=== PATIENT | male | born 1965 | race Caucasian/White ===

== ENCOUNTER 2016-08-22 18:51 | Inpatient (IN) | payer OTHER ==
[~2016-08-22] VITALS: Ht 185.4 cm; Wt 93.6 kg
[~2016-08-22 18:51] MED LIST: BISOPROLOL-HCT1 EAC2 PO; CRUTCH1 EACH MISC; DRISDOL50000 UNIT PO; FENOFIBRATE160 MG PO; LANTUS SOL100 UNIT/1 SUB-Q; LISINOPRIL2.5 MG PO; NORCO 5-325 TA1 EACH PO; NORTRIPTYLINE H25 MG PO; SIMVASTATIN40 MG PO
[2016-08-22] MEDS ORDERED: ALPRAZOLAM0.25 MG PO (19:03)
--- NOTE | 2016-08-22 22:00 | NUR ---
51YR OLD MALE ADMITTED FROM ER VIA STRETCHER TO ROOM 123. PT IS ALERT, ORIENTED. ABLE TO SLIDE ONTO BED WITH MINIMAL ASSIST. LEFT LEG/FOOT ELEVATED AND ICE PACK TO ANKLE. GOOD CMS TO TOES. MONET WRAP/SPLINT CDI. SL TAPED SECURELY TO L AC. ORIENTED TO ROOM AND CALL LIGHT. ORDERS NOTED.
--- NOTE | 2016-08-22 22:45 | NUR ---
PT REQUESTED PAIN MEDICATION. STATES PAIN 5/10 NOW IN LEFT ANKLE. REPOSITIONED ON PILLOW FOR COMFORT, MORPHINE 4MG IV GIVEN. WATCHING TV. REMAINS NPO. IVF PATENT.
--- NOTE | 2016-08-22 23:45 | NUR ---
CALL WAS PLACED TO DR ARGUELLO TO DISCUSS ELEVATED BLOOD SUGAR AND PT HAD NOT TAKEN HIS SCHEDULED HS INSULIN. RECIEVED ORDER TO GIVE LANTUS 25 UNITS SQ NOW. HOSPITALIST TO CONSULT BEFORE AM SURGERY.
--- NOTE | 2016-08-23 00:45 | NUR ---
DR CHÁVEZ HERE TO CONSULT ON PT. NEW ORDERS NOTED. IVF CHANGED. BLOOD SUGAR CHECKED-161, COVERED WITH SC INSULIN ORDER.
--- NOTE | 2016-08-23 00:55 | NUR ---
PT SAT UP AT BEDSIDE AND VOIDED 300ML YELLOW URINE. REPOSITIONED IN BED FOR COMFORT AND ELEVATED LEFT LEG/ANKLE. ICE PACK TO ANKLE. CONT. TO HAVE GOOD CMS TO TOES. MORPHINE 4MG IV GIVEN FOR 5/10 PAIN. WILL TRY TO SLEEP NOW. REMAINS NPO.
--- NOTE | 2016-08-23 02:00 | NUR ---
EAR PLUGS PROVIDED PT IS C/O NOISE FROM ANOTHER ROOM. STATES HE IS COMFORTABLE NOW. KEEPING LEFT LEG ELEVATED.
--- NOTE | 2016-08-23 03:10 | NUR ---
STATES PAIN IS COMING BACK INTO LEFT ANKLE AND FOOT, REPOSITIONED, ICE TO AREA. MORPHINE 4MG IV GIVEN. DENIES NEED TO VOID, IVF PATENT. REMAINS NPO.
--- NOTE | 2016-08-23 06:11 | NUR ---
PT SAT UP AT BEDSIDE TO USE URINAL, WAS UNABLE TO RAISE L ARM OR GRASP WITH L HAND, LEFT LEG VERY WEAK. LEFT SIDE OF FACE WITH DROOP AND HAVING DIFFICULTY WITH SPEECH. SLURRING WORDS. DENIES HEADACHE OR PAIN. REPOSITIONED WITH L LEG ELEVATED. VITALS TAKEN. CALL PLACED TO DR CHÁVEZ. RECIEVED ORDER TO GET HEAD CT AND POSTPONE SCHEDULE SURGERY @ 0730.
--- NOTE | 2016-08-23 06:24 | NUR ---
PT TO CAT SCAN AT THIS TIME. MOST SX HAVE ALMOST COMPLETELY RESOLVED. SPEECH IS NOW CLEAR AND VERY MINIMAL FACIAL DROOP ON LEFT. EQUAL STENGTHS HANDS/LEGS NOW. IV TO SL AT THIS TIME.
--- NOTE | 2016-08-23 07:55 | NUR ---
PATIENT WAS AWAKE WHEN I CHECKED IN, HE REQUESTED WATER, AND WANTED TO KNOW IF HE WOULD BE GOING HOME.
--- NOTE | 2016-08-23 08:03 | NUR ---
RECIEVED BEDSIDE REPORT FROM ANNABEL MANCIA. PT SLEEPING, BREATHING EVEN AND UNLABORED. PT WOKE FOR MD ASSESSMENT. RN ROUNDED WITH MD. SCD, RAY DAVIS ON RIGHT LEG. CMS INTACT ON RIGHT SIDE. LEFT SIDE CMS INTACT, MD ORDERED NOT TO WIGGLE TOES. ICE TO LEFT CAST. BILAT RESTAURANT RECRUITER INTACT.
--- NOTE | 2016-08-23 08:57 | NUR ---
PATIENT WAS ABLE TO HAVE WATER, AND IS CURRENTLY TRYING TO REST. WILL CHECK Q2
--- NOTE | 2016-08-23 11:45 | NUR ---
PT AWAKE AND ALERT. PT REPORTS NO HEADACHE, NO NAUSEA, NO VOMITING. TREMORS NOTICIBLE WHEN REACHING FOR ITEMS. NO DIFFICULTY SWALLOWING. PT SLIGHTLY DIAPHORETIC.
--- NOTE | 2016-08-23 14:37 | EKG ---
[facility] [address] [facility] [place] [address] Signed Normal sinus rhythm Nonspecific ST abnormality Abnormal ECG No previous ECGs available Confirmed by NURA CHÁVEZ MD ([id number]) on 08/23/2016 2:36:52 PM Electronically Signed By: NURA CHÁVEZ MD 08/23/16 1437 PATIENT NAME: MARY ELLEN PERALTA Electrocardiogram DATE OF : 63 PHYSICIAN: NURA CHÁVEZ MD REPORT #: [id number] REPORT IS CONFIDENTIAL AND NOT TO BE RELEASED WITHOUT AUTHORIZATION
--- NOTE | 2016-08-23 15:06 | NUR ---
PT RESTING IN BED. HAS VOIDED. PT REPORTS MINIMAL PAIN AT THIS TIME, STATES MORPHINE WAS EFFECTIVE. NO C/O NAUSEA, VISION CHANGES, HEARING CHANGES, SWEATS, OR HEADACHE. PT HAD QUESTIONS RE: DISCHARGE AND HOME CARE. QUESTIONS ANSWERED. NO BM THIS SHIFT.
--- NOTE | 2016-08-23 18:25 | NUR ---
PT NON-WEIGHT BEARING ON LEFT LEG. PT REPORTS PAIN IN LEFT ANKLE, MORPHINE EFFECTIVE PAIN CONTROL. NO NEUROLOGICAL CHANGES THIS SHIFT. PT ALERT AND ORIENTATED X4. RADIATOR CORE TESTER EQUAL. CMS INTACT. TREMORS PRESENT IN ARMS.
--- NOTE | 2016-08-23 20:00 | NUR ---
RECEIVED REPORT AT 1900. PT WAS IN BED ALERT AND ORIENTED. PT DENIED PAIN AT THAT TIME.
--- NOTE | 2016-08-23 23:43 | NUR ---
PT IS SLEEPING AT THIS TIME. NEURO CHECK WAS WNL, NEURO VASCULAR CHECK WAS WNL WITH NEUROPATHY HIS BASELINE. PT IS ALERT AND ORIENTED, PT HAS SLIGHT TREMOR IN HANDS, CIWA WAS WNL BESIDES HIS TREMORS. V/S ARE WNL. PAIN IS WELL CONTROLLED WITH PRN PAIN MEDS AVAILABLE. NO NEW ISSUES NOTED AT THIS TIME.
--- NOTE | 2016-08-24 00:30 | NUR ---
NEURO-CHECK, NEURO-VASCULAR CHECK AND CIWA ARE ALL WNL AT THIS TIME. IN PT INTERVENTION SECTION I WAS UNABLE TO FIND AND UNABLE TO ADD THE NEURO-CHECK AN INTERVENTION. THEREFORE I WILL DOCUMENT THE NEURO-CHECK VIA NOTES.
--- NOTE | 2016-08-24 00:47 | NUR ---
PT IS AWAKE IN BED
--- NOTE | 2016-08-24 05:47 | NUR ---
PT OVERALL HAD UNEVENTFULL NIGHT, ALL NEURO-CHECKS, CIWA'S AND NEURO-VASCULAR CHECKS HAVE BEEN WNL., PT HAS BEEN NPO SINCE 0000. PAIN IS WELL CONTROLLED WITH IV MORPHINE. NO NEW ISSUES NOTED AT THIS TIME.
--- NOTE | 2016-08-24 05:47 | NUR ---
CIWA, NEURO-VASC CHECK AND NEURO CHECK ARE ALL WNL
--- NOTE | 2016-08-24 07:39 | NUR ---
RECIEVED BEDSIDE REPORT FROM ANNABEL DOMINIQUE. PT AWAKE AND ALERT. PT ANXIOUS ABOUT DISCHARGE AND SURGERY. ROUNDED WITH DR. ARGUELLO, WHO EXPLAINED SURGICAL PROCESS. PT VERBALIZED UNDERSTANDING.
--- NOTE | 2016-08-24 08:08 | NUR ---
SPOKE WITH DR. CHÁVEZ RE: CLEARANCE FOR SURGERY. DR CHÁVEZ WILL COME ASSESS PT.
--- NOTE | 2016-08-24 08:20 | NUR ---
INTO ASSESS PT THIS AM TO CLEAR FOR SURGERY. REPORTED TO THIS RN THAT PT IS OK TO GO TO SURGERY. HILTON JIN IN DAYSURGERY NOTIFIED PER REQUEST TO BE NOTIFIED OF 'S DECISION.
--- NOTE | 2016-08-24 08:36 | NUR ---
Patient got his hair shampooed and wiped down for surgery clean gown and shaved. patient is relaxing now.
--- NOTE | 2016-08-24 09:21 | NUR ---
PT OFF THE UNIT WITH RADHA Jones RN SURGERY TO SURGERY DEPT. AT THIS TIME
--- NOTE | 2016-08-24 10:53 | NUR ---
08/24/16 1053 Mara Childs 1045 PATIENT ARRIVES TO PACU UNRESPONSIVE TO VERBAL OR TACTILE STIMULI. ORAL AIRWAY IN PLACE. MASK AT 6 LITERS.
--- NOTE | 2016-08-24 11:03 | NUR ---
PT GONE FROM ROOM.
--- NOTE | 2016-08-24 11:41 | NUR ---
PT RETURNED TO FLOOR FROM PACU AT 1130. VITALS TAKEN. ASSESSMENT DONE.
--- NOTE | 2016-08-24 12:01 | NUR ---
PT SCORED 10 ON CIWA, NOTIFIED AND CIWA PROTOCOL ORDERED, 5MG I.V. VALIUM ADMINSTERED AT THIS TIME. WILL REASSESS IN 30 MIN.
--- NOTE | 2016-08-24 12:55 | NUR ---
PT IS SLEEPING, RESP EVEN AND UNLABORED, SLIGHT SNORES. PT ON TELE #8, HR 100. O2 SAT 97% ON ROOM AIR.
--- NOTE | 2016-08-24 13:17 | NUR ---
PT ATTEMPTING TO GET OUT OF BED "LOOKING FOR A RESTROOM". EASILY REORIENTATED TO PLACE AND LOCATION. PT STATES HE KNOWS WHAT TOOK PLACE THIS MORNING, REMEMBERS HIS SURGERY THIS MORNING. CIWA SCALE OF 9, 5MG ATIVAN GIVEN, PO. VOIDED 550. PT STATED HE WAS "LOOKING FOR ALTERNATE TRANSPORTATION FOR THIS ANKLE".
--- NOTE | 2016-08-24 13:22 | NUR ---
DR ARGUELLO NOTIFIED OF [facility] PROTOCOL STARTING. NO NEW ORDERS.
--- NOTE | 2016-08-24 15:59 | NUR ---
SPOKE WITH PATIENT IN ROOM. PT STATES HE LIVES ALONE. HAS BROKE A BONE IN SAME FOOT BEFORE, WORE A REMOVABLE BOOT. STAYED AT HOME. HAS SCOOTER AND CANE. PT STATES HE HAS NEUROPATHY AND CAN'T FEEL FEET, STUMBLES ALOT. PT STATES HE WILL GO HOME ALONE AT DISCHARGE. WHEN QUESTIONED ABOUT BEING ABLE TO GET INTO AND AROUND FOR SELF HE BEGAN SAYING HE DID IT BEFORE, WOULD GET UP TO STEP IN SCOOTER, THEN PIVOT TO SIT ON THE STEP, THEN PULL AROUND TO STAND ON UPPER STEP AND PULL SCOOTER UP. ONCE INSIDE, NO STAIRS. PT STATES ONLY REAL PROBLEM IS DRIVEWAY HAS GRAVEL AND SCOOTER DOESN'T MOVE WELL. PT STATES HE CAN HAVE HIS FRIEND KRYSTAL TAKE HIM HOME. PT HAS NO ONE TO STAY WITH HIM. AGAIN I QUESTIONED IF THIS WAS A SAFE IDEA, HE FEELS IT WILL WORK. SUGGESTED POSSIBLE HOME HEALTH RN AND PT COME IN. HE STATES HE DIDN'T NEED IT LAST TIME. EXPLAINED THIS HEALING MAY BE DIFFERENT HE HAS THE EXTERNAL HARDWARE TO DEAL WITH ETC. WE AGREED TO SEE WHAT DR ARGUELLO FEELS WOULD BE NEEDED. PT DOESN'T BELIEVE HE HAS BARRIERS TO RETURNING HOME ALONE.
--- NOTE | 2016-08-24 18:21 | NUR ---
PT WENT TO SURGERY THIS AM. UPON RETURN FROM SURGERY, PT EXHIBITED SYMPTOMS OF ALCOHOL WITHDRAWAL, CIWA PROTOCOL STARTED PER DR. CHÁVEZ. PT GIVEN 2 DOSES IV VALIUM, 2 DOSES PO VALIUM WITH GOOD RESULTS. CIWA SCORES OF 5-9. PT SEEMS VERY ANXIOUS AND FIDIGTY. PT REPORTS MILD PAIN FROM EXTERNAL FIXATION OF LEFT ANKLE, PRN OXYCODONE EFFECTIVE. PT TACHYCARDIC SINCE RETURN FROM SURGERY, ON TELE #8, HR # [id number]. PT VOIDING WELL, NO BM THIS SHIFT. NO WEIGHT BEARING ON LEFT FOOT.
--- NOTE | 2016-08-24 21:14 | NUR ---
CIWA SCORE WAS A 8. 5MG OF PO VALIUM WAS GIVEN. NEURO CHECKS AND NEURO-VASC CHECKS HAVE BEEN WNL. ALL LOBES ARE CLEAR AND LEFT TOES ARE WARM TO TOUCH. THERE IS LITTLE SEROUS DRAINAGE AROUND BOTH PIN SITES. EXTERNAL FIXATION IS IN PLACE.
--- NOTE | 2016-08-24 22:15 | NUR ---
CIWA AT 2215 WAS A 1
--- NOTE | 2016-08-25 00:18 | NUR ---
CIWA WAS 0 DUE TO PT SLEEPING.
--- NOTE | 2016-08-25 01:42 | NUR ---
CIWA AT THIS TIME IS A 1 PT DENIES PAIN AT THIS TIME NO ADDITIONAL NUMBNESS OR TINGLING IN LEFT FOOT DRESSING HAS SOME SEROUS DRAINAGE.
--- NOTE | 2016-08-25 03:35 | NUR ---
PT IS SLEEPING AT THIS TIME.
--- NOTE | 2016-08-25 04:35 | NUR ---
PT OVERALL HAD AN UNEVENTFUL NIGHT. AT START OF SHIFT, PT SCORED 8 ON HIS CIWA FOR WHICH HE RECEIVED 5MG OF PO VALIUM. PT ALSO RECEIVED 10MG OF OXY PO FOR PAIN. ALL OTHER CIWA'S SINCE HAVE BEEN A 1 OR 0. V/S ARE WNL, URINE OUTPUT IS ADEQUATE THUS FAR. PT IS SLEEPING AT THIS TIME. SX SITE HAS SOME SEROUS DRAINAGE ON GAUZE. BUT OVERALL LOOKS GOOD.
--- NOTE | 2016-08-25 06:02 | NUR ---
CIWA AT THIS TIME IS A 2. PT HAS MILD TREMORS.
--- NOTE | 2016-08-25 07:45 | NUR ---
RECIEVED BEDSIDE REPORT FROM ANNABEL DOMINIQUE. PT SLEEPING WELL UNTIL FRIEND AND MED STUDENT CAME IN. PT RESTLESS AND FIDGITY WHILE AWAKE. CIWA SCORE 6 AT THIS TIME. CMS INTACT IN BOTH LOWER EXTRIMETIES. 8CM BRUISE BEHIND LEFT KNEE. SMALL AMOUNT OF SEROSANGUOUS DRAINAGE ON GAUZE. SCATTERED BRUISING ON RIGHT KNEE.
--- NOTE | 2016-08-25 09:26 | NUR ---
SPOKE WITH PATIENT. PATIENT STILL WANTING TO GO HOME AT DISCHARGE. IS UNSURE ABOUT LOGISTICS. UNSURE IF HE CAN USE A SCOOTER, OR CRUTCHES. DISCUSSED WE WILL KNOW MORE ONCE HIS SURGEON MAKES ROUNDS. HE STILL IS PLANNING ON BEING HOME ALONE.
--- NOTE | 2016-08-25 09:30 | NUR ---
SPOKE WITH DR ARGUELLO REGARDING PATIENTS LIVING ALONE AND NOT HAVING A SAFE PLAN IF GOING HOME. HE STATES HE WILL DISCUSS WITH THE PATIENT POSSIBLE FACILITY STAY FOR REHAB UNTIL ABLE TO RETURN HOME. HE STATES PATIENT WILL NEED ANOTHER SURGERY AND THEN REHAB.
--- NOTE | 2016-08-25 09:55 | NUR ---
DR ARGUELLO STATES HE SPOKE WITH PATIENT ABOUT NOT BEING ABLE TO RETURN HOME ALONE. HE STATES THE PATIENT ISN'T THRILLED, BUT SEEMS TO UNDERSTAND. DISCUSSED WITH DR ARGUELLO POSSIBLE TRANSITIONAL BED OPTION STAY HERE. HE STATES TO ASK THE PATIENT IF HE WOULD BE INTERESTED. DR ARGUELLO THINKS THIS MIGHT BE A BETTER OPTION FOR PATIENT.
--- NOTE | 2016-08-25 10:44 | NUR ---
PT ASSISTED UP TO RECLINER WITH TWO PERSON, ONE PERSON TO HOLD LLE UP AND THE OTHER PERSON TO ASSIST TO MAINTAIN BALANCE. PT TOELRATED WELL. PAIN IS WELL CONTROLLED AT THIS TIME PER PT REPORT
--- NOTE | 2016-08-25 10:44 | NUR ---
PT UP IN CHAIR WITH 2 PERSON ASSIST TO KEEP FOOT OFF FLOOR. PT ON PHONE. PT ANXIOUS ABOUT NEWS FROM DR. ARGUELLO. PT ASKED MULTIPLE QUESTIONS REGARDING HIS CARE, QUESTIONS WERE ANSWERED. PT STATED THAT HE FELT MUCH BETTER ABOUT HIS OPTIONS AND CARE AFTER DISCUSSION.
--- NOTE | 2016-08-25 13:03 | NUR ---
PT UP IN CHAIR, REQUESTING TO PUT SHORTS AND UNDERWEAR ON.
--- NOTE | 2016-08-25 13:55 | NUR ---
LEFT MESSAGE FOR DR ARGUELLO TO CALL RE: PT HAS NO PHYSICAL THERAPY ORDER.
--- NOTE | 2016-08-25 14:11 | NUR ---
CALLED FOR PHYSICAL THERAPY ORDER. P.T. NOTIFIED ON UNIT OF NEW ORDER
--- NOTE | 2016-08-25 14:53 | NUR ---
PT JUST GETTING BACK INTO BED AFTER STANDING AT BEDSIDE WITH PHYSICAL THERAPY USING WALKER. DISCUSSED WITH THERAPIST AND PATIENT REGARDING HIS THERAPY NEEDS S/P HIS PROCEDURES. DISCUSSED POSSIBLE TRANSITIONAL THEREAPY STAY. PATIENT IS VERY MUCH INTERESTED IN THIS. HE STATES HE WOULD MUCH RATHER STAY HERE THAT BE IN A RESIDENTIAL, IF THIS IS POSSIBLE. DISCUSSED THAT WE CAN LOOK INTO THIS WE GET CLOSER TO KNOWING EXACTLY WHAT HE NEEDS, ETC. HE IS RECEPTIVE TO THIS.
--- NOTE | 2016-08-25 17:46 | NUR ---
PT UP TO CHAIR, WORKED WITH PHYSICAL THERAPY. GAUZE HAS SMALL AMOUNT OF BLOOD. CIWA SCORES STABLE, 2 BEERS WITH LUNCH/DINNER. DISCUSSED DISCHARGE OPTIONS, REHAB. PT EATING WELL, CBG STABLE. PAIN CONTROLED WITH PRN MEDICATIONS.
--- NOTE | 2016-08-25 19:48 | NUR ---
PATIENT IS RESTING IN BED WATCHING TV. PATIENTS LEFT LEG IS ELEVATED ON A PILLOW. PATIENT DENIES ANY PAIN AT THIS TIME. PATIENT IS ON A PULSE OX AND READINGS ARE WNL. PATIENT HAS TEDHOSE ON HIS RIGHT LEG, SCDS, AND HEEL PROTECTOR. PATIENT DENIES ANY NEEDS AT THIS TIME. CALL LIGHT IS WITHIN REACH.
--- NOTE | 2016-08-25 22:12 | NUR ---
PATIENT ASSESMENT COMPLETED. PATIENT RATES PAIN AT A 8/10 IN HIS LEFT ANKLE. PATIENT DESCRIBES THE PAIN "THROBBING". PATIENT GIVEN PRN PAIN MEDICATION PER ORDER. APPLIED ICE PACK TO LEF ANKLE PER ORDER. PATIENTS BLOOD SUGAR TAKEN AND RECORDED. PATIENT GIVEN EVENING MEDICATIONS PER ORDER. PATIENT HAS TEDHOSE ON HIS RIGHT LEG, SCD, AND HEEL PROTECTOR. NEURO CHECK COMPLETED AND RECORDED. PATIENT IS AAOX3. PATIENT ASKS MULTIPLE QUESTIONS ABOUT CARE AND APPEARS ANXIOUS. ALL PATIENTS QUESTIONS ANSWERED. PATIENT DENIES ANY FURTHER NEEDS AT THIS TIME. CALL LIGHT IS WITHIN REACH.
--- NOTE | 2016-08-25 23:50 | NUR ---
PATIENT GIVEN EAR PLUGS PER REQUEST. PATIENT RATES PAIN AT A 2/10. PATIENT DENIES THE NEED FOR PAIN MEDCATION AT THIS TIME. PATIENT DENIES ANY FURTHER NEEDS. CALL LIGHT IS WITHIN REACH.
--- NOTE | 2016-08-26 02:06 | NUR ---
PATIENTS BEDSIDE URINAL EMPTIED. CIWA RECORDED AND COMPLETED. CURRENT CIWA IS A 4. NEURO CHECK RECORDED AND COMPLETED. PATIENT RATES PAIN AT A 2/10. PATIENT DENIES THE NEED FOR PAIN MEDICATION PER ORDER. PATIENT DENIES ANY FURTHER NEEDS. CALL LIGHT IS WITHIN REACH.
--- NOTE | 2016-08-26 02:06 | NUR ---
PATIENTS BEDSIDE URINAL EMPTIED. CIWA RECORDED AND COMPLETED. CURRENT CIWA IS A 2. NEURO CHECK RECORDED AND COMPLETED. PATIENT RATES PAIN AT A 2/10. PATIENT DENIES THE NEED FOR PAIN MEDICATION PER ORDER. PATIENT DENIES ANY FURTHER NEEDS. CALL LIGHT IS WITHIN REACH.
--- NOTE | 2016-08-26 04:43 | NUR ---
PATIENTS URINAL EMPTIED. PATIENT IS RATING PAIN AT A 7/10. PATIENT GIVEN PRN PAIN MEDICATION PER ORDER. PLACED ICE ON PATIENTS ANKLE PER ORDER. PATIENT DENIES ANY FURTHER NEEDS AT THIS TIME. CALL LIGHT IS WITHIN REACH.
--- NOTE | 2016-08-26 05:26 | NUR ---
PATIENT RESTED WELL THROUGHOUT THE SHIFT. PATIENT RECEIVED PRN PAIN MEDICATION X2. PATIENT RECEIVED ICE TO LEFT ANKLE PER ORDER. PATIENT IS ON AN ADA DIET AND IS TOLERATING IT WELL. PATIENT IS ON A CONTINUOUS PULSE OX AND READINGS HAVE BEEN WNL. PATIENT IS SL. PATIENT HAS AN SCD ON HIS RIGHT LEG, TEDHOSE, AND HEEL PROTECTOR. PATIENT IS USING BEDSIDE URINAL. PATIENT IS USING BED SIDE COMMODE. PATIENT HAD X1 BM. NEURO AND CIWA CHECKS COMPLETED. PATIENT IS AAOX3 AND CALLS APPROPRIATELY. PATIENTS LEFT LEG HAS REMAINED ELEVATED. PATIENT HAS GAUZE DRESSING AROUND EXTERNAL FIXATOR, AND THE GAUZE HAS MINIMAL DRAINAGE.
--- NOTE | 2016-08-26 06:12 | NUR ---
CIWA AND NEURO CHECK COMPLETED PER ORDER. PATIENT STATED "MY PAIN IS NOW A 5, IT IS DECREASING" PATIENT DENIES ANY FURTHER NEEDS AT THIS TIME. CALL LIGHT IS WITHIN REACH.
--- NOTE | 2016-08-26 08:40 | NUR ---
PT AWAKE IN BED UPON ENTERING ROOM. DENIES PAIN OR NAUSEA AT THIS TIME. EXTERNAL FIXATION DEVICE TO LEFT LOWER EXTREMITY, OPEN TO AIR PER DR. ARGUELLO. MEPILEX APPLIED TO BLISTERS ON LEFT ANKLE PER SAUNDRA. PIN SITES WITH NO DRAIANAGE OR OTHER CONCERNS NOTED. LEFT LOWER EXTREMITIY ELEVATED ON PILLOWS. PT ALERT AND ORIENTED TO ALL, CIWA 2, NEURO CHECK BENIGN. CALL LIGHT WITHIN REACH.
--- NOTE | 2016-08-26 09:49 | NUR ---
PT AMB HALLWAY WITH P.T., NON WEIGHT BEARING ON LEFT LEG WITH WALKER, SOLOMON WELL.
[2016-08-26] MEDS ORDERED: ALPRAZOLAM XR1 MG PO (10:59)
--- NOTE | 2016-08-26 11:01 | NUR ---
MED REC COMPLETE WITH [facility] REFILL HISTORY AND PATIENT INTERVIEW.
--- NOTE | 2016-08-26 12:15 | NUR ---
PT SITTING UP IN BED, USING URINAL. DENIES PAIN OR OTHER NEEDS OR CONCERNS AT THIS TIME. CALLS APPROPRIATELY.
--- NOTE | 2016-08-26 13:40 | NUR ---
PT EATING LATE LUNCH D/T HAVING A LOT OF VISITORS IN ROOM. INSULIN ADMINISTERED. LEOBARDO PAIN OR OTHER CONCERNS. CALL LIGHT WITHIN REACH.
--- NOTE | 2016-08-26 14:41 | NUR ---
PT SITTING IN BED ALERT AND ORIENTED. HE BEGAN TO EXPLAIN TO ME WHAT BROUGHT ABOUT HIS NEEDING TO BE HERE, AND HOW HE BROKE HIS FOOT. HE MENTIONED THAT HE HAD A NEIGHBOR THAT HE THOUGHT I MIGHT KNOW-WHICH I DO. HE IS ONE OF OUR ON-CALL CHAPLAINS. HE ASKED ME IF I COULD CALL HIM AND LET HIM KNOW HE IS HERE. I WAS ABLE TO REACH HIS NEIGHBOR AND HE IS COMING IN THIS EVENING. HE THANKED ME. WILL CONTINUE TO FOLLOW
--- NOTE | 2016-08-26 16:40 | NUR ---
PT IN BED MAKING PHONE CALLS AND "TAKING CARE OF WORK STUFF." CIWA REMAINS 2 AND NEURO CHECK REMAINS BENIGN. PT DENIES PAIN OR OTHER CONCERNS.
--- NOTE | 2016-08-26 19:57 | NUR ---
RECEIVED REPORT FROM DAY SHIFT RN. PATIENT DENIES ANY PAIN AT THIS TIME. PATIENTS LEFT FOOT IS ELEVATED ON A PILLOW. PATIENTS DRESSING IS C/D/I. PATIENT DENIES ANY NEEDS AT THIS TIME. CALL LIGHT IS WITHIN REACH.
--- NOTE | 2016-08-26 20:52 | NUR ---
USED CALL LIGHT APPROPRIATELY, TO GET BACK INTO BED. 2 PERSON ASSIST, PT ABLE TO DIRECT CARE, ABLE TO GET INTO BED WITH MIMINAL ASSIST. LEFT FOOT SUPPORTED ON PILLOW. REPLACED WATER, WELL ICE WATER FOR PATIENT.
--- NOTE | 2016-08-26 22:21 | NUR ---
PATIENT ASSESMENT, CIWA, AND NEURO CHECK COMPLETED AND RECORDED. PATIENT IS A 3 ON THE CIWA. PATIENT RATES PAIN AT A 7/10, AND DESCRIBES PAIN "THROBBING" PATIENTS GIVEN PRN PAIN MEDICATION PER ORDER. PATIENTS HAS MEPLX ON LEFT ANKLE, AND IT IS C/D/I. PIN CARE PERFORMED. PATIENTS EVENING MEDICATIONS GIVEN PER ORDER. PATIENTS FEET ARE ELEVATED. PATIENT HAS TEDHOSE, SCD, AND HEEL [ROTECTOR ON RIGHT LEG. PATIENT IS AAOX3. PATIENT HAS GOOD CAP REFILL IN LEFT TOES. ICE APPLIED TO LEFT ANKLE PER ORDER. PATIENT DENIES ANY FURTHER NEEDS AT THIS TIME. CALL LIGHT IS WITHIN REACH.
--- NOTE | 2016-08-27 00:08 | NUR ---
PATIENTS LEFT FFOT REPOSTIONED ONTO LEFT PILLOW. PATIENT RATES PAIN AT A 3/10. PATIENT DENIES ANY NEED FOR PAIN MEDICATION AT THIS TIME. PATIENTS CALL LIGHT IS WITHIN REACH.
--- NOTE | 2016-08-27 02:41 | NUR ---
PATIENT CONTINUES TO REST IN BED WITH EYES CLOSED. BREATHING IS EVEN AND UNLABORED, RR16. PATIENTS LEFT LEG REMAINS PROPPED ON PILLOW. PATIENTS CALL LIGHT IS WITHIN REACH.
--- NOTE | 2016-08-27 04:25 | NUR ---
PATIENT CONTINUES TO REST IN BED WITH EYES CLOSED. BREATHING IS EVEN AND UNLABORED, RR 16
--- NOTE | 2016-08-27 05:13 | NUR ---
PATIENT RESTED WELL THROUGHOUT SHIFT. PATIENT RECEIVED PRN PAIN MEDCIATION X2. PATIENTIS ON AN ADA DIET AND IS TOLERATING IT WELL NO COMPLAINTS OF NAUSEA. PATIENT IS SL. PATIENT IS WEARING HEEL PROTECTORS, TEDHOSE, AND SCDS, ON RIGHT LEG. PATIENT IS NON-WEIGHT BEARING ON LEFT LEG. PATIENT USES URINAL IN BED, OR BSC. PATIENTS LEFT FOOT HAS REMAINED ELEVATED. PATIENT HAS AN EXTERNAL FIXATOR ON LEFT LEG. PATIENT HAS NEURO CHECKS AND CIWA SCALE ORDER, THEY HAVE BEEN COMPLETED AND DOCUMENTED. PATIENT HAS BEEN A 2-4 ON THE CIWA SCALE. PATIENT HAD X1 BM. PIN CARE PERFROMED PER ORDER. PATIENT HAS REMAINED AAOX3.
--- NOTE | 2016-08-27 05:39 | NUR ---
PATIENT COMPLAINS OF 8/10 PAIN IN HS LEFT ANKLE. PATIENT DESCRIBES PAIN "A THROBBING ACHE THAT IS CONSTANT" PATIENT GIVEN PRN PAIN MEDICATION PER ORDER. PATIENT DENIES ANY FURTHER NEEDS AT THIS TIME. PATIENTS URINAL EMPTIED.
--- NOTE | 2016-08-27 05:53 | NUR ---
WHEN ASSESING PATIENT THIS AM IT WAS NOTICE THAT PATIENT HAS AN INCREASE IN SWELLING IN HIS LEFT FOOT/ANKLE. SWELLING IS RATED A MINIMAL. WILL CONTINUE TO MONITOR.
--- NOTE | 2016-08-27 07:20 | NUR ---
BEDSIDE HANDOFF REPORT RECEIVED FROM [place] ATTORNEY RN. PT RESTING IN BED. PT STATES PAIN TOLERABLE AT THIS TIME. PT LEG ELEVATED ON PILLOWS. PT DENIES NEEDS AT THIS TIME.
== END 2016-08-27 07:30 | disposition swing bed (61) | DRG 493 ==
LOC: ED 18:51 → MS 18:52
PROVIDERS: ADMIT Specialist
PROC: 0QSH36Z Reposition Left Tibia with Intramedullary Internal Fixation Device, Percutaneous Approach (ICD-10-PCS; principal; 2016-08-26)
PROC: 0QHH05Z Insertion of External Fixation Device into Left Tibia, Open Approach (ICD-10-PCS; 2016-08-26)
DX: S82.852A Displaced trimalleolar fracture of left lower leg, initial encounter for closed fracture (principal); G45.9 Transient cerebral ischemic attack, unspecified; F10.230 Alcohol dependence with withdrawal, uncomplicated; E11.40 Type 2 diabetes mellitus with diabetic neuropathy, unspecified; I10 Essential (primary) hypertension; Z91.81 History of falling; E78.5 Hyperlipidemia, unspecified; E55.9 Vitamin D deficiency, unspecified; F41.8 Other specified anxiety disorders; W19.XXXA Unspecified fall, initial encounter; R20.9 Unspecified disturbances of skin sensation; R53.1 Weakness; Y90.0 Blood alcohol level of less than 20 mg/100 ml
CPT/HCPCS: 01482; 27818; 36415; 70450; 73600; 73610; 80048; 80053; 80061; 80069; 83036; 83735; 85025; 93005; 93010; 93306; 93880; 94762; 96374; 96376; 97110; 97116; 97163; 99283; 99406; C1713; G0378; J0690; J2060; J2250; J2270; J2704; J3010; J3360; J3475

== ENCOUNTER 2016-08-27 07:30 | Inpatient (IN) | payer OTHER ==
[~2016-08-27] VITALS: Ht 185.4 cm; Wt 93.6 kg
[~2016-08-27 07:30] MED LIST changes: +ALPRAZOLAM XR1 MG PO; +ALPRAZOLAM0.25 MG PO
== END 2016-09-02 06:25 | disposition short-term general hospital (02) | DRG 561 ==
LOC: MS 07:30
PROVIDERS: ADMIT Specialist
DX: S82.852E Displaced trimalleolar fracture of left lower leg, subsequent encounter for open fracture type I or II with routine healing (principal); E11.40 Type 2 diabetes mellitus with diabetic neuropathy, unspecified; E11.65 Type 2 diabetes mellitus with hyperglycemia; I25.10 Atherosclerotic heart disease of native coronary artery without angina pectoris; E78.00 Pure hypercholesterolemia, unspecified; M19.90 Unspecified osteoarthritis, unspecified site; F41.8 Other specified anxiety disorders; E55.9 Vitamin D deficiency, unspecified; W18.30XD Fall on same level, unspecified, subsequent encounter; Z79.4 Long term (current) use of insulin; Z79.899 Other long term (current) drug therapy
CPT/HCPCS: 97110; 97116; 97163; J0690; J1885; J2250; J2405; J2704; J2795; J7120

== ENCOUNTER 2016-09-02 06:25 | Observation (INO) | payer OTHER ==
[~2016-09-02] VITALS: Ht 185.4 cm; Wt 93.6 kg
--- NOTE | 2016-09-02 08:21 | NUR ---
09/02/16 0820 Mignon Benitez REPORT FROM TURB[facility] OPERATOR.
--- NOTE | 2016-09-02 09:25 | NUR ---
PT TO FLOOR. AWAKE AND ALERT. DRESSING IN PLACE TO L LEG. CAST PADDING AND COBAN. CDI. CMS INTACT TO L LEG. PT RATES PAIN 5/10. DENIES NEED FOR MED AT THIS TIME. L LEG ELEVATED ON PILLOWS WITH ICE.
--- NOTE | 2016-09-02 10:37 | NUR ---
PT AWAKE AND ALERT IN BED. GIVEN 1 NORCO PER REQUEST. PT AWARE MAY HAVE 2ND PILL IF NEEDED. REQUESTS ONLY ONE AT THIS TIME. DRESSING CDI. CMS INTACT. PT DENIES NEEDS. CALL LIGHT IN REACH.
--- NOTE | 2016-09-02 11:02 | NUR ---
ASSISTED PATIENT WITH BED BATH. SKIN CARE AND ORAL CARE. PATIENT REQUESTED TO GO BACK TO BED. RESTING IN BED WITH CALL BUTTON IN REACH AND FRESH ICE WATER. NO OTHER NEEDS AT THIS TIME.
--- NOTE | 2016-09-02 12:42 | NUR ---
PT RESTING IN BED. L LEG ELEVATED. DRESSING CDI. CMS INTACT. RATES PAIN 5/10. REQUESTS SECOND PAIN PILL. DENIES ADDITIONAL NEEDS. CALL LIGHT IN REACH.
--- NOTE | 2016-09-02 13:45 | NUR ---
PT SLEEPING IN BED. L FOOT ELEVATED ON PILLOWS. DRESSING CDI. CMS INTACT. CALL LIGHT IN REACH
--- NOTE | 2016-09-02 14:19 | NUR ---
VISITED WITH PT, POST SURGERY. HE IS ALERT AND ORIENTED. SEEMS TO ENJOY COMPANY. PINS AND PLATES INSTALLED TODAY. PT SEEMS MORE RELIEVED NOW THAT EXTERNAL APPARATUS IS GONE. PT INQUIRED HOW I WAS DOING. GOOD VISIT. WILL CONTINUE TO FOLLOW
--- NOTE | 2016-09-02 15:37 | NUR ---
PT RESTING IN BED. L FOOT ELEVATED ON PILLOWS PT CONTINUES TO RATE PAIN 2-3/10. DENIES NEEDS. ASKS ABOUT PHYSICAL THERAPY. UPDATED REGARDING MD WANTING TO WAIT FOR PHYSICAL THERAPY UNTIL TOMORROW OR THE NEXT DAY.
--- NOTE | 2016-09-02 17:07 | NUR ---
PT BACK TO FLOOR THIS MORNING. LARGE BANDAGE OF CAST PADDING AND COBAN TO LLE. LEG ELEVATED WITH ICE THROUGHOUT DAY. PHYSICAL THERAPY TO START TOMORROW OR NEXT DAY. PT MEDICATED FOR PAIN X 2 WITH 1 TAB 7.5 MG NORCO. BLOCK RESOLVED. VOIDING WELL. CALLS APPROPRIATELY. IGNACIA'Deborah.
--- NOTE | 2016-09-02 17:55 | NUR ---
BLOOD SUGAR CHECKED - 160. MD CALLED FOR INSULIN ORDERS, NONE IN CHART. ORDERS TO REORDER PREVIOUS INSULIN ORDERS FROM SWING BED ORDERS.
--- NOTE | 2016-09-02 19:39 | NUR ---
PT COMPLAINED OF 9/10 PAIN, GAVE NORCO 7.5MG. WILL CONTINUE TO MONITOR PAIN CLOSELY. DRESSING IS CLEAN DRY AND INTACT. PT IS SITTING UP IN BED, WATCHING TV. 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 SCD IN PLACE. CALL LIGHT IN REACH. GAVE FRESH ICE WATER. FRESH ICE IN ICE PACK. CALL LIGHT IN REACH.
--- NOTE | 2016-09-02 20:29 | NUR ---
RESPIRATORY IN WITH PT. PT USING INCENTIVE SPIROMETER.
--- NOTE | 2016-09-02 21:15 | NUR ---
PT CONTINUES TO RATE PAIN AT 9/10, STATES "THESE ARE JUST NOT GIVING ME MUCH RELEIF, THE OTHER ONES DID." NOTIFIED DR ARGUELLO OF PT'S UNCONTROLLED PAIN, NEW ORDER FOR OXYCODONE RECEIVED.
--- NOTE | 2016-09-02 21:25 | NUR ---
PT RATES PAIN AT 11/01, GAVE OXYCODONE 10MG FOR PAIN. LEG ELEVATED ON 2 PILLOWS. NO FURTHER NEEDS. CALL LIGHT IN REACH.
--- NOTE | 2016-09-02 23:46 | NUR ---
pt rates pain at "6-7" out of 10. pt reports "its starting to get better." gave norco 15mg to continue to get pain under control. pt laying in bed. awake, alert and oriented x4. dressing remains clean dry and intact. left leg elevated, ice packs in place. no further needs. fresh ice water given. call light in reach. pt very thankful and pleasent.
--- NOTE | 2016-09-03 02:13 | NUR ---
PT WOKE WHEN NURSE ENTERED ROOM, STATED "I WAS SLEEPING A LITTLE BIT." COMPLAINED OF 6/10 PAIN, STATED "ITS GOTTEN BETTER THAN LAST TIME YOU GAVE ME MEDS." GAVE OXYCODONE FOR PAIN. ELEVATED LEFT LEG ON TWO PILLOWS. PT DENIES FURTHER NEEDS. CALL LIGHT IN REACH.
--- NOTE | 2016-09-03 04:06 | NUR ---
pt appears to be sleeping.
--- NOTE | 2016-09-03 05:27 | NUR ---
PT PAINFUL FIRST PART OF SHIFT, NEW PAIN MEDICATION ORDER RECEIVED. PAIN CONTROL BETTER SECOND HALF OF SHIFT AND PT ABLE TO GET SOME REST. PT ALERT AND ORIENTED X4, PLEASENT DEMEANOR, COOPERATIVE. USES CALL LIGHT APPROPRIATLY. DRESSING TO LEFT ANKLE IS CLEAN DRY AND INTACT, NO SHADOWING. PT USING URINAL TO VOID, VOIDING WELL. NO NAUSEA OR PRURITIS OVERNIGHT. LEFT KEPT ELEVATED ON TWO PILLOWS OVERNIGHT. SCD AND ICE PACKS IN PLACE OVERNIGHT. PT USED INCENTIVE SPIROMETER FREQUENTLY. SALINE LOCK WNL AND FLUSHES WELL.
--- NOTE | 2016-09-03 06:11 | NUR ---
PT CONTINUES TO RATE PAIN AT "5-6/10," STATES "ITS WAY BETTER THAN LAST NIGHT THOUGH. GAVE 5MG OXYCODONE PER PT REQUEST. FRESH ICE IN ICE PACKS. FRESH ICE WATER AT BEDSIDE. NO FURTHER NEEDS.
--- NOTE | 2016-09-07 09:57 | OR ---
[facility] [address], [place] [address] Signed DATE OF SERVICE: 09/02/2016 PREOPERATIVE DIAGNOSIS: Trimalleolar ankle fracture/dislocation, right ankle. POSTOPERATIVE DIAGNOSIS: Trimalleolar ankle fracture/dislocation, right ankle, status post ex fix on day of injury. PROCEDURE PERFORMED: 1. Removal of ex fix. 2. Open reduction and internal fixation of trimalleolar ankle fracture, right. SURGEON: Morris Iverson M.D. ROLL FORMING SUPERVISOR: Mary Deng PA-C. Mary was present and critical for positioning, retraction, wound closure, and holding reduction. ANESTHESIA: General. BLOOD LOSS: Minimal. TOURNIQUET TIME: 15 minutes. IMPLANTS: 8-hole 1/3 tubular plate with 8 screws laterally, 2 screws medially, and 2 screws anteriorly. BRIEF HISTORY: Og is a 51-year-old gentleman with severe peripheral neuropathy, who had rolled his ankle because he could not feel it. He had a fracture/dislocation and it was quite unstable with substantial skin breakdown. I elected to put him in an ex fix and let the skin settle before proceeding with operative treatment. He was placed in the external fixator and elevating his skin eventually to the point where I thought it was stable for surgery. Because of the unstable nature of the fracture, he would require open reduction and internal fixation of all 3 sites. Risks, benefits, and alternatives were discussed with him. He elected to proceed. PROCEDURE IN DETAIL: Once consent was obtained, he was taken to the operating room. After adequate anesthesia, the left leg was placed in well-padded proximal thigh tourniquet and prepped and draped in a standard sterile fashion. The external fixator was removed and the pin holes were cleaned. Once this was accomplished, the ankle was Electronically Signed By: MORRIS IVERSON MD 09/07/16 0957 PATIENT NAME: MARY ELLEN PERALTA OPERATIVE REPORT DATE OF : 63 PHYSICIAN: MORRIS IVERSON MD REPORT #: [id number] REPORT IS CONFIDENTIAL AND NOT TO BE RELEASED WITHOUT AUTHORIZATION [facility] [address], [place] [address] Signed found to be quite unstable and clearly in need of significant fixation. The lateral side was approached first through a longitudinal incision. The periosteum was elevated and the fracture was distracted and cleaned. Because of the fragmentation of the fracture, I was unable to place an anterior to posterior screw. We held the fracture reduced with a clamp and placed the lateral side plate utilizing 2 locking screws distally, the remainder mixture of cortical and cancellous screws. The reduction was quite good. This was closed after irrigation and attention was turned to the medial side. A longitudinal incision avoiding the blisters and skin breakdown was taken through skin and subcutaneous tissue. Again, the fracture was distracted, cleaned, and reduced and held with a 2.0 K-wire. The reduction was checked using image intensifier and found to be satisfactory. Four cancellous screws were placed anterior and posterior to the K-wire, reducing the fracture quite nicely. Again, the wound was cleansed and closed with 2-0 nylon. The posterior fragment was fairly sizable and we elected to ligate back into position and hold it using 2 screws from anterior to posterior under direct image intensifier guidance. One cancellous and one cortical screws used there again secondary to poor bone quality. This was then closed using zenobia and wounds were dressed with Mepilex Ag dressing, as were the ex fix pin holes and placed in a bulky Garza dressing. He tolerated the procedure well. Sponge, needle, and instrument counts were correct. Morris Iverson MD BA/Aurel /[id number] Electronically Signed By: MORRIS IVERSON MD 09/07/16 0957 PATIENT NAME: MARY ELLEN PERALTA OPERATIVE REPORT DATE OF : 63 PHYSICIAN: MORRIS IVERSON MD REPORT #: [id number] REPORT IS CONFIDENTIAL AND NOT TO BE RELEASED WITHOUT AUTHORIZATION
== END 2016-09-03 07:00 | disposition admitted as inpatient to this hospital (09) ==
LOC: DSVR 06:25 → MS 06:25 → DSVR 07:10 → MS 09:25
PROVIDERS: ADMIT Specialist
PROC: 0QSC04Z Reposition Left Lower Femur with Internal Fixation Device, Open Approach (ICD-10-PCS; 2016-09-02)
PROC: 0SPG05Z Removal of External Fixation Device from Left Ankle Joint, Open Approach (ICD-10-PCS; principal; 2016-09-02 06:45)
DX: S82.852D Displaced trimalleolar fracture of left lower leg, subsequent encounter for closed fracture with routine healing (principal); G89.18 Other acute postprocedural pain; W18.30XD Fall on same level, unspecified, subsequent encounter; I25.10 Atherosclerotic heart disease of native coronary artery without angina pectoris; E11.40 Type 2 diabetes mellitus with diabetic neuropathy, unspecified; E78.00 Pure hypercholesterolemia, unspecified; M19.90 Unspecified osteoarthritis, unspecified site; F41.8 Other specified anxiety disorders; E55.9 Vitamin D deficiency, unspecified; Z79.4 Long term (current) use of insulin; Z79.899 Other long term (current) drug therapy
CPT/HCPCS: 01480; 64445; 73600; 76942; 94760; C1713; G0378; J0690; J3010

== ENCOUNTER 2016-09-03 07:00 | Inpatient (IN) | payer OTHER ==
[~2016-09-03] VITALS: Ht 185.4 cm; Wt 93.6 kg
--- NOTE | 2016-09-03 08:55 | NUR ---
PATIENT NOW SWINGBED, SITTING UP IN BED EATING BREAKFAST. COMPLAINING OF PAIN 6/10 ON PAIN SCALE AT THIS TIME. VS STABLE.
--- NOTE | 2016-09-03 09:44 | NUR ---
PT IS RESTING IN BED, TRYING TO SLEEP. ASKED FOR THE BLINDS TO BE CLOSED. PT AGREED TO SHOWER BUT WOULD LIKE TO REST FOR A LITTLE WHILE.
--- NOTE | 2016-09-03 10:23 | NUR ---
ADMINISTERED PAIN MEDICATION 5MG OXYCODONE PO, PATIENT STATES " IT'S STARTING TO THROB AGAIN". LEG ELEVATED ON PILLOWS, DSG C/D/I, ICE APPLIED. PATIENT AGREES TO SHOWER WHEN PAIN IMPROVED. ALSO REPORTS DID NOT SLEEP WELL THROUGHOUT NIGHT.
--- NOTE | 2016-09-03 11:43 | NUR ---
ANNABEL DICKINSON INFORMED ME THAT PT HAD A ROUGH NIGHT FOLLOWING SURGERY YESTERDAY. SHE HAD GIVEN HIM PAIN MEDS AND HE WAS SLEEPING. THE LIGHTS WERE OFF, AND WE FELT IT BEST TO NOT DISTURB HIM. WILL FOLLOW LATER
--- NOTE | 2016-09-03 12:42 | NUR ---
PATIENT RESTING IN BED WITH EYES CLOSED, PAIN IMPROVED. AGREES TO GET UP AND SIT IN RECLINER IN AWHILE, ASKED TO REST A BIT MORE. BED BATH PROVIDED. EATING WELL.
--- NOTE | 2016-09-03 14:18 | NUR ---
PT IS CURRENTLY WORKING WITH PHYSICAL THERAPY AND DOES NOT NEED ANYTHING AT THE MOMENT
--- NOTE | 2016-09-03 16:24 | NUR ---
CALLED [facility] ABOUT A SCOOTER AND A RAMP. THEY JUST STATED TO SEND THE PAPERWORK AND THEY WOULD SEND THE SCOOTER TOMORROW WHEN THEY GET THE ORDER. THE RAMP WILL NEED TO BE ORDERED BY THE PT WHEN HE IS DC'D
--- NOTE | 2016-09-03 17:38 | NUR ---
PT IS SITTING UP IN BED WORKING ON HIS PHYSICAL THERAPY EXERCISES, PT HAS NOT ATE DINNER YET B/C HE ASKED FOR IT TO COME LATER. PT ASKED FOR MORE ICE WATER
--- NOTE | 2016-09-03 17:59 | NUR ---
PATIENT TRANSFERED TO SWINGBED TODAY, PAIN WELL CONTROLLED WITH PO PAIN MEDICATION. COMPLAINTS OF CONSTIPATION MOM ADMINISTERED, REFUSES ENEMA AT THIS TIME. PATIENT DRINKING PLENTY AND DOING EXCERCISES IN BED. UP WITH PHYSICAL THERAPY. VS STABLE. DRESSING TO KNEE C/D/I, LEG ELEVATED ON PILLOW. BEERS WITH DINNER.
--- NOTE | 2016-09-03 19:54 | NUR ---
PATIENT FINSIHED DINNER. TOLERATING WELL. PATIENT DRANK BEERS X2. PATIENT REQUESTING AMBULATION IN BARBER. PATIENT TOLERATED AMBULATING WELL IN BARBER WITH TOE TOUCH WT BARING AND FWW. PATIENT AMBULATED FROM ROOM TO PT ROOM AND BACK. PATIENT RATING PAIN 4/10. PATIENT STATING NO PAIN MEDICATION AT THIS TIME, BUT WOULD LIKE OXY AT 2130. PATIENT ASSISTED BACK TO BED. SCD APPLIED TO R LOWER LEG. PATIENT HAS COBAN WRAP TO L LOWER LEG. SMALL AMOUNT OF OLD DRAINAGE PRESENT ON BACK OF HEEL. PATIENT ABLE TO WIGGLE TOES ON L SIDE. WARM TO TOUCH WITH PPP. CAP REFILL WNL.
--- NOTE | 2016-09-03 21:15 | NUR ---
PATIENT GIVEN HIS EVENING MEDICATIONS. REQUESTING 10MG OF OXY FOR BED. RATING PAIN 7/10. PATIENT STATING THROBBING TYPE OF PAIN AT NIGHT. SCDS APPLIED TO R LOWER LEG. PATIENT STATING NO OTHER NEEDS AT THIS TIME. CALL LIGHT WITHIN REACH. JOSIIR GIVEN 50 UNITS. WILL CONTINUE TO MONITOR.
--- NOTE | 2016-09-04 00:57 | NUR ---
PATIENT SLEEPING. RR EVEN AND UNLABORED. WILL CONTINUE TO MONITOR.
--- NOTE | 2016-09-04 01:18 | NUR ---
PATIENT WOKE TO USE URINAL. PATIENT HAD 450 OUT OF URINE. PATIENT STATING HE WAS ABLE TO SLEEP PRETTY WELL, BUT THAT WHEN HE WOKE HIS L LEG IS STARTING TO THROB A LITTLE. REQUESTING 5 MG OF OXY THIS TIME. PATIENT CURRERNTLY RATING PAIN 6/10. PATIENT STATING HE WILL UPDATE ME IF HE NEEDS THE OTHER 5 MG. PATIENT STATING NO OTHER COMPLAINT AT THIS TIME. WILL CONTINUE TO MONITOR. PATIENT HAS L LEG ELEVATED ON PILLOW. SCD PLACED ON R SIDE. CALL LIGHT WITHIN REACH.
--- NOTE | 2016-09-04 03:28 | NUR ---
PATIENT CURRENTLY SLEEPING. RR EVEN AND UNLABORED. PATIENT HOB ELEVATED. L LOWER LEG ELEVATED ON PILLOW. R LEG HAS SCD APPLIED. CALL LIGHT WITHIN REACH. WILL CONT TO MONITOR PATIENT.
--- NOTE | 2016-09-04 04:08 | NUR ---
patient called to use bsc. patient assisted with a stby assist to bsc. patient tolerating well.
--- NOTE | 2016-09-04 04:16 | NUR ---
patient had large soft bm. assisted back to bed with stby assist and fww. patient stating with activity and change of position in l lower leg increased pain to 7/10. requesting 5 of oxy for a 7/10 pain. l lower leg elevated on pillow. scd applied to r lower leg. no other needs at this time.
--- NOTE | 2016-09-04 04:22 | NUR ---
pt had good evening. requiring oxy prn several times for pain managment. patient calls when he needs pain medication. tolerating ambulation with toe touch on l leg with fww. ambulated in turner last night. coban dressing has small amount of old drainage on back of leg. while in bed l leg has been elevated in pillow. scds to r lower leg. no signs of withdrawal on shift. patient is getting 2 beers with meals. continue with rehab from physical therapy on swing bed.
--- NOTE | 2016-09-04 09:40 | NUR ---
PT IS CURRENTLY WORKING WITH PHYSICAL THERAPY, WILL TAKE VITALS WHEN HE IS DONE. PT AGREED TO SHOWER AFTER PHYSICAL THERAPY.
--- NOTE | 2016-09-04 10:20 | NUR ---
PT WAS IN P.T. RM DOING LEG LIFTS. IT WAS OBVIOUS HE WAS FEELING MUCH BETTER THAN YESTERDAY FOLLOWING SURGERY. HE ADMITTED THAT HE DID NOT WANT TO SEE VISITORS FOLLOWING SURGERY-LOTS OF PAIN. TODAY MUCH BETTER. HE THANKED ME FOR VISITING. I EXTENDED A BLESSING, AND HE ACKNOWLEDGED AND THANKED ME. WILL FOLLOW NEEDED
--- NOTE | 2016-09-04 12:30 | NUR ---
FAXED PAPERWORK TO [facility], THEY WILL HAVE SOMEONE DELIVER THE SCOOTER THIS AFTERNOON.
--- NOTE | 2016-09-04 14:11 | NUR ---
PATIENT RESTING, REQUESTING PAIN MEDICAITON. ADMINISTERED 5MG OXYCODONE. PATIENT REPORTS " THIS HAS BEEN A GOOD DAY".
--- NOTE | 2016-09-04 14:19 | NUR ---
PT JUST WOKE UP FROM [facility] AND ASKED FOR PAIN MEDS AND CRANBERRY JUBAKARI, NURSE NOTIFIED
--- NOTE | 2016-09-04 17:30 | NUR ---
PATIENT WELL PAIN WELL CONTROLLED WITH 5MG OF OXYCODONE. NOW RATES PAIN 3/10 ON PAIN SCALE. SCOOTER ARRIVED TO ROOM, PATIENT UP WITH PHYSICAL THERAPY LEARNING HOW TO USE IT. VS STABLE. FRIENDS IN ROOM VISITING.
--- NOTE | 2016-09-04 18:34 | NUR ---
PT IS SITTING UP IN BED VISITING WITH FRIEND AND IS WAITING FOR DINNER TRAY TO ARRIVE. PT ASKED FOR MORE ICE WATER
--- NOTE | 2016-09-04 20:00 | NUR ---
RECEIVED REPORT AT 1900. PT WAS SITTING IN CHAIR EATING DINNER. PT AT THAT TIME DENIED ANY PAIN. PT WAS DRINKING 2 BEER WITH HIS DINNER. PT LOOKS WELL OVERALL.
--- NOTE | 2016-09-04 22:14 | NUR ---
PT RECEIVED 50UNITS OF LEVEMIR INSULIN, BG WAS 220 THIS EVENING. 10MG OF PO OXYCODON. ALL LOBES ARE CLEAR, PT HAS NO ABNORMAL NUMBNESS IN LEFT TOES, TOES ARE WARM TO TOUCH, CAST IS C/D/I. PT IS RESTING NOW.
--- NOTE | 2016-09-05 01:06 | NUR ---
PT IS SLEEPING AT THIS TIME.
--- NOTE | 2016-09-05 04:04 | NUR ---
PT IS SLEEPING AT THIS TIME.
--- NOTE | 2016-09-05 05:43 | NUR ---
PT OVERALL HAD AN UNEVENTFUL NIGHT. PT SLEPT ALL NIGHT. PT RECEIVED 10MG OF OXYCODONE 10MG BEFORE HE WENT TO SLEEP.
--- NOTE | 2016-09-05 07:35 | NUR ---
Patient sitting up in the chair eating breakfast. Patient assisted with bedside commode and had bowel movement. No other requests at this time.
--- NOTE | 2016-09-05 08:28 | NUR ---
PATIENT DOING CROSSWORD PUZZLES, RATES PAIN 3/10 ON PAIN SCALE. DENIES NEED FOR PAIN MEDICATION AT THIS TIME. PATIENT AMBULATING DOWN TO PHYSICAL THERAPY ROOM, DOING EXERCISES. ATE 100% OF BREAKFAST. DRESSING DRY AND INTACT. STRONG PEDAL PULSE.
--- NOTE | 2016-09-05 12:00 | NUR ---
PATIENT UP IN HALLS WITH SCOOTER, APPEARS COMFORTBLE. NO COMPLAINTS OF PAIN AT THIS TIME. DRESSING DRY AND INTACT, STRONG PEDAL PULSE. FRIENDS TO ROOM TO VISIT. PATIENT WATCHING TELEVISION AND AND DOING CROSSWORD PUZZLES.
--- NOTE | 2016-09-05 12:11 | NUR ---
PATIENT IS SITTING UP EATING LUNCH AT THIS TIME. NO OTHER REQUESTS
--- NOTE | 2016-09-05 14:46 | NUR ---
PATIENT UP TO THE COMMODE AT THIS TIME WITH STANDBY ASSIST.
--- NOTE | 2016-09-05 18:45 | NUR ---
PATIENT ACTIVE THROUGHOUT DAY, PAIN MEDICATION IN THE MORNING, DENIED NEED THROUGHOUT REST OF DAY. DRESSING DRY AND INTACT. PATIENT APPEARS COMFORTBLE, UP IN HALLS ON SCOOTER.
--- NOTE | 2016-09-05 19:34 | NUR ---
RECEIVED REPORT FROM DAY SHIFT RN. PATIENT IS UP IN RECLINER READING A PAPER AND WATCHING TV. PATIENT RATES PAIN AT A 2/10. PATIENT DENIES THE NEED FOR ANY PAIN MEDICATION AT THIS TIME. CALL LIGHT IN REACH.
--- NOTE | 2016-09-05 21:59 | NUR ---
PATIENT ASSISTED TO THE BED FROM THE RECLINER. PATIENT USED SCOOTER. PATIENT USES SCOOTER WELL. PATIENTS EVENING MEDICATIONS GIVEN PER ORDER. PATIENT RATES PAIN AT A 3/10. PATIENT IS REQUESTING PAIN MEDICATION. PATIENT GIVEN PRN PAIN MEDICATION PER ORDER. PATIENTS DRESSING ON HI LEFT FOOT IS C/D/I. PATIENT IS TOLERATING HIS CAST WELL. PATIENT IS AAOX3. PATIENT DENIES ANY FURTHER NEEDS. CALL LIGHT IS WITHIN REACH.
--- NOTE | 2016-09-05 23:03 | NUR ---
ROUNDED ON PATIENT. PATIENT AND FAMILY DENY AND COMPLAINTS OR CONCERNS. ALL QUESTIONS ANSWERED.
--- NOTE | 2016-09-05 23:18 | NUR ---
PATIENT IS IN BED RESTING WITH EYES CLOSED. BREATHING IS EVEN AND UNLABORED. PATIENTS CALL LIGHT IS WITHIN REACH.
--- NOTE | 2016-09-06 01:28 | NUR ---
PATIENT IS RESTING IN BED WITH EYES CLOSED, [id number]
--- NOTE | 2016-09-06 03:46 | NUR ---
PATIENTS URINAL DUMPED PER PATIENT REQUEST. PATIENT DENIES ANY PAIN AT THIS TIME. PATIENT DENIES ANY FURTHER NEEDS. CALL LIGHT IS WITHIN REACH.
--- NOTE | 2016-09-06 05:18 | NUR ---
PATIENT RESTED WELL THROUGHOUT THE SHIFT. PATIENT RECEIVED PRN PAIN MEDICATION X1. PATIENT IS ON AN ADA DIET W/1999 CALORIE LIMIT. PATIENT IS SL. PATIENT IS A SBA AND USES SCOOTER TO AMBULATE. PATIENT IS ON SWING BED STATUS. PATIENT HAS DRESSING ON HIS LEFT FOOT. DRESSING IS C/D/I. PATIENT IS AAOX3 AND USES CALL LIGHT APPROPRIATELY.
--- NOTE | 2016-09-06 06:34 | NUR ---
PATIENT DENIES ANY PAIN AT THIS TIME. PATIENTS URINAL EMPTIED. PATIENT DENIES ANY FURTHER NEEDS AT THIS TIME. CALL LIGHT IS WITHIN REACH.
--- NOTE | 2016-09-06 07:25 | NUR ---
REPORT RECEIVED FROM MOTEL FRONT DESK ATTENDANT RN USING 5 P'S. PT AWAKE AND ALERT IN BED. DENIES NEEDS. CALL LIGHT IN REACH. CAST DRESSING TO LLE INTACT. PT INDEPENDANT IN ROOM.
--- NOTE | 2016-09-06 11:29 | NUR ---
CHECKED IN ON PATIENT HE HAS BEEN USING THE SCOOTER WITHOUT INCIDENT. HAS CONTINUED WITH HEP TWICE A DAY. NO QUESTIONS. ALEJANDRA SILVA
--- NOTE | 2016-09-06 13:00 | NUR ---
PT UP TO DO LAPS AROUND BARBER ON SCOOTER. STEADY ON SCOOTER. DENIES PAIN. DENIES NEEDS.
--- NOTE | 2016-09-06 16:21 | NUR ---
PT RESTING IN BED WATCHING TV. GIVEN PM MEDS. DENIES NEEDS. CALL LIGHT IN REACH.
--- NOTE | 2016-09-06 17:03 | NUR ---
PT HAS HAD UNEVENTFUL SHIFT. UP INDEPENDANTLY WITH SCOOTER. PHYSICAL THERAPY. SL'D. NO PAIN MEDS THIS SHIFT. MOVES WELL. CALLS APPROPRIATELY. BEER WITH MEALS. REGULAR DIET. NO ISSUES.
--- NOTE | 2016-09-06 17:24 | NUR ---
PT UP AMBULATING BARBER WITH SCOOTER.
--- NOTE | 2016-09-06 21:07 | NUR ---
PT ASSESSMENT COMPLETE. PT RATES PAIN 6-7/10 IN LEFT LEG, OXYCODONE GIVEN. PT HAD BEEN UP AMBULATING INDEPENDENTLY WITH SCOOTER IN HALLS, DID 3 LAPS, PT TOLERATED AMBULATION WELL. PT DENIES ANY N/V, CLEAR LUNG SOUNDS, ROOM AIR. PT SALINE LOCKED, PATENT AND INTACT. DRESSING TO LEFT LEG IS C/D/I, ELEVATED ON PILLOW, GOOD CMS. CALL LIGHT WITHIN REACH. PT DENIES ANY FURTHER NEEDS AT THIS TIME.
--- NOTE | 2016-09-06 22:30 | NUR ---
PT SLEEPING, RR EVEN AND UNLABORED. PT APPEARS COMFORTABLE AT THIS TIME. CALL LIGHT WITHIN REACH.
--- NOTE | 2016-09-07 02:28 | NUR ---
PT SLEEPING, RR EVEN AND UNLABORED. PT APPEARS COMFORTABLE AT THIS TIME. CALL LIGHT WITHIN REACH.
--- NOTE | 2016-09-07 04:50 | NUR ---
PT RATES LEFT LEG PAIN /, 1 TAB OXYCODONE GIVEN PER PT REQUEST. PT RESTING IN BED QUIETLY. VOIDING WELL IN URINAL. CALL LIGHT WITHIN REACH. PT DENIES ANY FURTHER NEEDS AT THIS TIME.
--- NOTE | 2016-09-07 06:19 | NUR ---
PT SLEEPING, RR EVEN AND UNLABORED. PT APPEARS COMFORTABLE AT THIS TIME. LEFT LEG ELEVATED ON PILLOWS, DRESSING C/D/I. CALL LIGHT WITHIN REACH.
--- NOTE | 2016-09-07 07:36 | NUR ---
PATIENT UP TO CHAIR EATING BREAKFAST WITH CALL BUTTON IN REACH.
--- NOTE | 2016-09-07 08:31 | NUR ---
PT UP TO PHYSICAL THERAPY ROOM INDEPENDENTLY WITH SCOOTER NOW. PAIN WELL CONTROLLED. PRN PAIN MED GIVEN OVER NIGHT. NO COMPLAINTS THIS MORNING. AWAITING TO HEAR DISCHARGE PLAN.
--- NOTE | 2016-09-07 11:15 | NUR ---
PT IS IN [facility] TODAY, WAITING FOR THE DR TO COME IN. HE IS TO TAKE THE TEMP CAST OFF AND FIT HIM WITH A BOOT FOR DC LATER TODAY. HE HAS BEEN BUSY GETTING ARRANGEMENTS MADE. I COULD TELL HE WAS SOMEWHAT CONCERNED ABOUT SHOWERING. I WILL CONTACT JANIE ABOUT POSSIBILITIES FOR HELP. PT REQUESTED PRAYER, WILL FOLLOW NEEDED
--- NOTE | 2016-09-07 11:25 | NUR ---
dr orr in to remove wrap on lower left extremity. swelling moderate. slight macerated area on inside of left ankle where pin previously was. will air out ankle for 1 hour before reapplying mepilex and boot.
[2016-09-07] MEDS ORDERED: OXYCODONE HCL5 MG PO (11:28)
[2016-09-07] MEDS ORDERED: HYDROCODON-ACE1 EA11 PO (11:28)
--- NOTE | 2016-09-07 13:17 | NUR ---
Taking shower before going home today.
--- NOTE | 2016-09-07 16:30 | NUR ---
Before going home had a shower.
--- NOTE | 2016-09-09 07:42 | DS ---
[facility] [address] [place], [place] [address] Signed ADMISSION DIAGNOSIS: Trimalleolar fracture dislocation, left ankle. DISCHARGE DIAGNOSIS: Trimalleolar fracture dislocation, left ankle. PROCEDURE PERFORMED: None. BRIEF HISTORY: Og is a 51-year-old gentleman with pain in his ankle after a fracture dislocation. He was initially placed in an external fixator due to wound issues. These resolved and he was taken to the operating room last week and underwent the above-named open reduction and internal fixation. He was then [facility]. He is ready for discharge now. He will remain toe-touch weightbearing on the left side using the fracture boot. He will continue with the wound care and see me on for wound check. He will follow up sooner if he has any problems. His medications on discharge will be his normal medications in addition to oxycodone 5 and [place] 7.5. He will follow up with me or notify me if he has any problems. Morris Iverson MD BA/Meli /[id number] Electronically Signed By: MORRIS IVERSON MD 09/09/16 0742 PATIENT NAME: MARY ELLEN PERALTA DISCHARGE SUMMARY DATE OF : 63 PHYSICIAN: MORRIS IVERSON MD REPORT #: [id number] REPORT IS CONFIDENTIAL AND NOT TO BE RELEASED WITHOUT AUTHORIZATION
== END 2016-09-07 14:20 | disposition home or self-care (01) | DRG 563 ==
LOC: MS 07:00
PROVIDERS: ADMIT Specialist
DX: S82.852A Displaced trimalleolar fracture of left lower leg, initial encounter for closed fracture (principal); Z79.4 Long term (current) use of insulin; I10 Essential (primary) hypertension; E11.65 Type 2 diabetes mellitus with hyperglycemia; E55.9 Vitamin D deficiency, unspecified; E11.40 Type 2 diabetes mellitus with diabetic neuropathy, unspecified; F41.8 Other specified anxiety disorders; E78.5 Hyperlipidemia, unspecified; I25.10 Atherosclerotic heart disease of native coronary artery without angina pectoris
CPT/HCPCS: 94760; 97110; 97116; 97161; 97530

== ENCOUNTER 2019-10-15 17:28 | Emergency (ER) | payer OTHER ==
[~2019-10-15] VITALS: Ht 185.4 cm; Wt 99.5 kg
--- OUTSIDE RECORDS SUMMARY | ~2019-10-15 | XMS | Encounter Summary ---
Demographics + + + | Address | [address] | | | [place] [address] | + + + | Home Phone | | + + + | Preferred Language | Unknown | + + + | Marital Status | Single | + + + | Methodist Affiliation | Unknown | + + + | Race | White | + + + | Ethnic Group | Not or | + + + Author + + + | Author | [facility] | + + + | Organization | [facility] | + + + | Address | Unknown | + + + | Phone | Unavailable | + + + Support + + +---------+ + | Name | Relationship | Address | Phone | + + +---------+ + | Declined | ECON | Unknown | Unavailable | + + +---------+ + Care Team Providers + +------+ + | Care Makeup Artist Name | Role | Phone | + +------+ + | Ponce Lemos DO | PCP | | + +------+ + Reason for Visit + + + | Reason | Comments | + + + | Follow-up visit | | + + + Benefits Check (Routine) +--------+--------+ + + + + | Status | Reason | Specialty | Diagnoses / | Referred By | Referred To | | | | | Procedures | Contact | Contact | +--------+--------+ + + + + | Closed | | Ophthalmology | | Eric | [place] | | | | | | Aneta | Karthikeyan Pacheco MD | | | | | | [address], | [address] | | | | | | [address] | [place] | | | | | | [address] | [address] | | | | | | [address] | [place], [place] | | | | | | [address] | [address] | | | | | | [address] | Phone: | | | | | | [place], | [phone] | | | | | | [place] [address] | Fax: | | | | | | Phone: | [phone] | | | | | | [phone] | | | | | | | Fax: | | | | | | | [phone] | | +--------+--------+ + + + + Encounter Details +--------+---------+ + + + | Date | Type | Department | Care Team | Description | +--------+---------+ + + + | 11/17/ | Office | [facility] | Karthikeyan Bazan T, | Moderate | | 2019 | Visit | [facility] | [address] | nonproliferative | | | | [place] [address] | [place] | diabetic retinopathy | | | | [facility] | [place], [place] | of right eye | | | | Clinic [place] [place], | [address] | without macular | | | | [place] [address] | [phone] | edema associated | | | | [phone] | | with type 2 diabetes | | | | | | mellitus (HCC) | | | | | | (Primary Dx); | | | | | | Moderate | | | | | | nonproliferative | | | | | | diabetic retinopathy | | | | | | of left eye with | | | | | | macular edema | | | | | | associated with type | | | | | | 2 diabetes mellitus | | | | | | (HCC) | +--------+---------+ + + + Social History + +-------+ +--------+------+ | Tobacco Use | Types | Packs/Day | Years | Date | | | | | Used | | + +-------+ +--------+------+ | Never Smoker | | | | | + +-------+ +--------+------+ + +------+---+---+ | Smokeless Tobacco: | Chew | | | | Current User | | | | + +------+---+---+ + + + | Sex Assigned at | Date Recorded | | | | + + + | Not on file | | + + + documented as of this encounter Progress Notes Karthikeyan Bazan MD - 11/17/2018 10:20 AM PDTFormatting of this note might be different fr om the original. [facility] Progress Note 11/17/2018 Assessment & Plan: 53 y.o. male Moderate nonproliferative diabetic retinopathy with macular edema, left eye Stable. -Continue to monitor -Glycemic and BP control encouraged Moderate nonproliferative diabetic retinopathy without macular edema, right eye Stable. -Continue to monitor -Glycemic control encouraged Follow up: Return in about 6 months (around 05/18/2019). to avoid Winter travel will see Dr Duane Reyes in between visit today and visit in six months - Call for decreased vision, increased distortion, increased pain, new floaters or flashing lights Chief Complaint: Follow-up visit HPI (Edited by physician):Patient states that his vision is stable. No new floaters, distor tions, or flashes of light. B this AM (This is lower than normal) Last A1c: 10.1 (09/09) Current Outpatient Medications (Other) Medication Sig ALPRAZolam XR Take 1 tablet by mouth as needed. aspirin chewable Aspirin Childrens 81 mg chewable tablet Chew 1 tablet every day by oral route. atorvastatin Take 80 mg by mouth once daily. Blood Sugar Diagnostic OneTouch Ultra Test strips TEST FLUCTUATING BLOOD SUGARS FASTING, before meals and at bedtime insulin degludec Tresiba FlexTouch U-200 insulin 200 unit/mL (3 mL) subcutaneous pen lisinopril Take 1 tablet by mouth once daily. metFORMIN SR Take 1 tablet by mouth two times daily. nortriptyline Take 1 capsule by mouth once daily at bedtime. Gmkfc-3-PUL-EPA-Fish Oil Take 1 capsule by mouth once daily. Examination: See Ophthalmology Module Attestations: The eeg technician, under the supervision of the physician, is responsible for performing the f ollowing sections: RFV, ROS, PMH, PSH, SocHx, FH, Med list, Base Ophth Exam. The attending physician is responsible for the entire content of the note and has personall y performed the HPI and the physical examination KARTHIKEYAN BAZAN MD documented in this e ncounter Miscellaneous Notes Assessment & Plan Note - Karthikeyan Bzaan MD - 11/17/2018 11:23 AM PDTAssociated Problem(s ): Moderate nonproliferative diabetic retinopathy without macular edema, right eyeStable. -Continue to monitor -Glycemic control encouraged 11:2 4 AM PDTAssessment & Plan Note - Karthikeyan Bazan MD - 11/17/2018 11:23 AM PDTAssociated Pr oblem(s): Moderate nonproliferative diabetic retinopathy with macular edema, left eye Stable . -Continue to monitor -Glycemic and BP control encouraged 19 11:26 AM PDTdocumented in this encounter Plan of Treatment Not on filedocumented as of this encounter Procedures + +--------+ + + + | Procedure Name | Priori | Date/Time | Associated Diagnosis | Comments | | | ty | | | | + +--------+ + + + | OCT, RETINA | Routin | 11/17/2018 | Moderate | Results for this | | | e | 11:23 AM | nonproliferative | procedure are in the | | | | PDT | diabetic retinopathy | results section. | | | | | of right eye | | | | | | without macular | | | | | | edema associated | | | | | | with type 2 diabetes | | | | | | mellitus (HCC) | | | | | | Moderate | | | | | | nonproliferative | | | | | | diabetic retinopathy | | | | | | of left eye with | | | | | | macular edema | | | | | | associated with type | | | | | | 2 diabetes mellitus | | | | | | (HCC) | | + +--------+ + + + documented in this encounter Results OCT, RETINA (11/17/2018 11:23 AM PDT) + + + | Narrative | Performed At | + + + | Call Center Rn | [facility] | | DocumentationRight EyeCentral macular thickness: 317 Left | [facility] | | EyeCentral macular thickness: 299 Provider DocumentationRight | | | EyeContour: no central thickening Fluid and related findings: | | | IRF, unchanged Left EyeContour: no central thickening Fluid and | | | related findings: IRF, unchanged | | |Central macular thickness: 299 | | | | | | | | |Provider Documentation | | |Right Eye | | |Contour: no central thickening | | |Fluid and related findings: IRF, unchanged | | | | | | | | |Left Eye | | |Contour: no central thickening | | |Fluid and related findings: IRF, unchanged | | + + + + + + + + | Performing | Address | City/State/Zipcode | Phone Number | | Organization | | | | + + + + + | [facility] | [address] | [place] [address] | | | [place] | [place] | | | + + + + + documented in this encounter Visit Diagnoses + + | Diagnosis | + + | Moderate nonproliferative diabetic retinopathy of right eye without macular edema | | associated with type 2 diabetes mellitus (HCC) - Primary | + + | Moderate nonproliferative diabetic retinopathy of left eye with macular edema | | associated with type 2 diabetes mellitus (HCC) | + + documented in this encounter"
--- OUTSIDE RECORDS SUMMARY | ~2019-10-15 | XMS | Encounter Summary ---
Demographics + + + | Address | [address] | | | [place] [address] | + + + | Home Phone | | + + + | Preferred Language | Unknown | + + + | Marital Status | Single | + + + | Evangelical Affiliation | Unknown | + + + | Race | White | + + + | Ethnic Group | Not or | + + + Author + + + | Author | [facility] | + + + | Organization | [facility] | + + + | Address | Unknown | + + + | Phone | Unavailable | + + + Support + + +---------+ + | Name | Relationship | Address | Phone | + + +---------+ + | Declined | ECON | Unknown | Unavailable | + + +---------+ + Care Team Providers + +------+ + | Care Residential Appraiser Name | Role | Phone | + +------+ + | No Pcp Per Patient | PCP | Unavailable | + +------+ + Reason for Visit + + + | Reason | Comments | + + + | New Patient Visit | | + + + Benefits Check (Routine) +--------+--------+ + + + + | Status | Reason | Specialty | Diagnoses / | Referred By | Referred To | | | | | Procedures | Contact | Contact | +--------+--------+ + + + + | Closed | | Ophthalmology | | Eric | [place], | | | | | | Aneta | Karthikeyan Pacheco MD | | | | | | [place] [address], | [address] | | | | | | [address] | [place] | | | | | | [address] | [address] | | | | | | [place] | [place], [place] | | | | | | [address] | [address] | | | | | | [address] | Phone: | | | | | | [place], | [phone] | | | | | | [place] [address] | Fax: | | | | | | Phone: | [phone] | | | | | | [phone] | | | | | | | Fax: | | | | | | | [phone] | | +--------+--------+ + + + + Encounter Details +--------+---------+ + + + | Date | Type | Department | Care Team | Description | +--------+---------+ + + + | 06/23/ | Office | [facility] | Karthikeyan Bazan T, | Mild | | 2019 | Visit | [facility] | [address] | nonproliferative | | | | [address] | [place] | diabetic retinopathy | | | | [facility] | [place], [place] | of both eyes | | | | Clinic [place], | [address] | without macular | | | | [place] [address] | [phone] | edema associated | | | | [phone] | | with type 2 diabetes | | | | | | mellitus (HCC) | | | | | | (Primary Dx); | | | | | | Moderate | | | | | | nonproliferative | | | | | | diabetic retinopathy | | | | | | of right eye | | | | | | without macular | | | | | | edema associated | | | | | | with type 2 diabetes | | | | | | mellitus (HCC); | | | | | | Moderate [...] | | | + +-------+ +--------+------+ + + + | Sex Assigned at | Date Recorded | | | | + + + | Not on file | | + + + documented as of this encounter Progress Notes Karthikeyan Bazan MD - 06/23/2018 10:00 AM PDTFormatting of this note might be different fr om the original. [facility] Progress Note 06/23/2018 Assessment & Plan: 53 y.o. male Moderate nonproliferative diabetic retinopathy of right eye without macular edema associate d with type 2 diabetes mellitus (HCC) Edema below threshold for treatment -BS and BG control discussed Moderate nonproliferative diabetic retinopathy of left eye with macular edema associated wi th type 2 diabetes mellitus (HCC) Edema below threshold for treatment -BS and BG control discussed -needs to be monitored with dilated exam and OCT every three months Follow up: Return in about 3 months (around 09/23/2018). - Call for decreased vision, increased distortion, increased pain, new floaters or flashing lights Chief Complaint: New Patient Visit HPI: Referred by Dr. Reyes for DME Patient states that he hasn't noticed any changes in his vision. He denies any floaters, fl ashing lights, or distortions. He said that Dr. Reyes noticed some diabetic changes in his eyes but he hasn't noticed any changes. BS: 215 yesterday afternoon Last A1c: 9.1 (11/09) ROS Positive for: Endocrine, Cardiovascular, Eyes Negative for: Constitutional, Gastrointestinal, Neurological, Skin, Genitourinary, Musculo skeletal, HENT, Respiratory, Psychiatric, Allergic/Imm, Heme/Lymph Last edited by Cristine Briseno on 06/23/2018 10:31 AM. (History) Current Outpatient Prescriptions (Other) Medication Sig ALPRAZolam XR Take 1 [...] capsule by mouth once daily at bedtime. Fcaiu-0-GHF-EPA-Fish Oil Take 1 capsule by mouth once daily. 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 [employer] Social History Main Topics Smoking status: Never Smoker Smokeless tobacco: Not on file Alcohol use Not on file Drug use: Unknown Sexual activity: Not on file Examination: See Ophthalmology Module Attestations: The donor support technician, under the supervision of the physician, [...] Notes Assessment & Plan Note - Karthikeyan Bazan MD - 06/23/2018 11:44 AM PDTAssociated Problem(s ): Moderate nonproliferative diabetic retinopathy with macular edema, left eye Edema below t hreshold for treatment -BS and BG control discussed -needs to be monitored with dilated exam and OCT every three months ssessment & Plan Note - Karthikeyan Bazan MD - 06/23/2018 11:44 AM PDTAssociated Problem(s): Moderate nonproliferative diabetic retinopa thy without macular edema, right eyeEdema below threshold for treatment -BS and BG control discussed 11:4 4 AM PDTdocumented in this encounter Plan of Treatment Not on filedocumented as of this encounter Procedures + +--------+ + + + | Procedure Name | Priori | Date/Time | Associated Diagnosis | Comments | | | ty | | | | + +--------+ + + + | OCT, RETINA | Routin | 06/24/2018 | Mild | Results for this | | | e | 10:35 AM | nonproliferative | procedure are in the | | | | PDT | diabetic retinopathy | results section. | | | | | of both eyes | | | | | | without macular | | | | | | edema associated | | | | | | with type 2 diabetes | | | | | | mellitus (HCC) | | + +--------+ + + + documented in this encounter Results OCT, RETINA (06/24/2018 10:35 AM PDT) + + + | Narrative | Performed At | + + + | Food And Nutrition Supervisor | [facility] | | DocumentationRight EyeCentral macular thickness: 306 Left | [facility] | | EyeCentral macular thickness: 320 Provider DocumentationRight | | | EyeContour: no central thickening Fluid and related findings: | | | IRF Left EyeContour: no central thickening Fluid and related | | | findings: IRF | | |Central macular thickness: 320 | | | | | | | | |Provider Documentation | | |Right Eye | | |Contour: no central thickening | | |Fluid and related findings: IRF | | | | | | | | |Left Eye | | |Contour: no central thickening | | |Fluid and related findings: IRF | | + + + + + + + + | Performing | Address | City/State/Zipcode | Phone Number | | Organization | | | | + + + + + | [facility] | [address] | [place] [address] | | | [place] | [place] | | | + + + + + documented in this encounter Visit Diagnoses + + | Diagnosis | + + | Mild nonproliferative diabetic retinopathy of both eyes without macular edema | | associated with type 2 diabetes mellitus (HCC) - Primary | + + | Moderate nonproliferative diabetic retinopathy of right eye without macular edema | | associated with type 2 diabetes mellitus (HCC) | + + | Moderate nonproliferative diabetic retinopathy of left eye with macular edema | | associated with type 2 diabetes mellitus (HCC) | + + documented in this encounter"
--- OUTSIDE RECORDS SUMMARY | ~2019-10-15 | XMS | Encounter Summary ---
Demographics + + + | Address | [address] | | | [place] [address] | + + + | Home Phone | | + + + | Preferred Language | Unknown | + + + | Marital Status | Single | + + + | Episcopal Affiliation | Unknown | + + + | Race | White | + + + | Ethnic Group | Not or | + + + Author + + + | Organization | Unknown | + + + | Address | Unknown | + + + | Phone | Unavailable | + + + Support + + +---------+ + | Name | Relationship | Address | Phone | + + +---------+ + | Declined | ECON | Unknown | Unavailable | + + +---------+ + Care Team Providers + +------+ + | Care Director Teen Post Name | Role | Phone | + +------+ + | Ponce Lemos DO | PCP | | + +------+ + Encounter Details +--------+--------+ + + + | Date | Type | Department | Care Team | Description | +--------+--------+ + + + | 09// | Travel | | | | | 2019 | | | | | +--------+--------+ + + + Social History + +-------+ [...] + + documented as of this encounter Plan of Treatment Not on filedocumented as of this encounter Visit Diagnoses Not on filedocumented in this encounter"
--- OUTSIDE RECORDS SUMMARY | ~2019-10-15 | XMS | Clinical Summary ---
Demographics + + + | Address | [address] | | | [place] [address] | + + + | Home Phone | | + + + | Preferred Language | Unknown | + + + | Marital Status | Single | + + + | Spiritism Affiliation | Unknown | + + + | Race | White | + + + | Ethnic Group | Not or | + + + Author + + + | Author | [facility] | + + + | Organization | [facility] | + + + | Address | Unknown | + + + | Phone | Unavailable | + + + Support + + +---------+ + | Name | Relationship | Address | Phone | + + +---------+ + | Declined | ECON | Unknown | Unavailable | + + +---------+ + Care Team Providers + +------+ + | Care Practice Professional Name | Role | Phone | + +------+ + | Ponce Lemos DO | PCP | | + +------+ + Source Comments [facility] is fully live on both [facility] and [facility] InPatient.[facility] Allergies No Known Allergies Medications + + + +---------+------+------+-------+ | Medication | Sig | Dispensed | Refills | Star | End | Statu | | | | | | t | Date | s | | | | | | Date | | | + + + +---------+------+------+-------+ | metFORMIN SR 500 | Take 1 tablet by | | 0 | | | Activ | | mg oral tablet | mouth two times | | | | | e | | extended release 24 | daily. | | | | | | | hr | | | | | | | + + + +---------+------+------+-------+ | lisinopril 2.5 mg | Take 1 tablet by | | 0 | | | Activ | | oral tablet | mouth once daily. | | | | | e | + + + +---------+------+------+-------+ | nortriptyline 25 | Take 1 capsule by | | 0 | 04/2 | | Activ | | mg oral capsule | mouth once daily at | | | 920 | | e | | | bedtime. | | | 19 | | | + + + +---------+------+------+-------+ | | Take 1 capsule by | | 0 | | | Activ | | Twrjx-0-ZLY-EPA-Fish | mouth once daily. | | | | | e | | Oil 1,000 mg (120 | | | | | | | | mg-180 mg) oral | | | | | | | | capsule | | | | | | | + + + +---------+------+------+-------+ | insulin degludec | Tresiba FlexTouch | | 0 | | | Activ | | (TRESIBA FLEXTOUCH | U-200 insulin 200 | | | | | e | | U-200) 200 unit/mL | unit/mL (3 mL) | | | | | | | (3 mL) subcutaneous | subcutaneous pen | | | | | | | insulin pen | | | | | | | + + + +---------+------+------+-------+ | ALPRAZolam XR 1 mg | Take 1 tablet by | | 0 | | | Activ | | oral tablet | mouth as needed. | | | | | e | | extended release 24 | | | | | | | | hr | | | | | | | + + + +---------+------+------+-------+ | aspirin chewable | Aspirin Childrens 81 | | 0 | | | Activ | | (ASPIRIN CHILDRENS) | mg chewable tablet | | | | | e | | 81 mg oral | Chew 1 tablet every | | | | | | | tablet,chewable | day by oral route. | | | | | | + + + +---------+------+------+-------+ | atorvastatin 80 mg | Take 80 mg by mouth | | 0 | 04/2 | | Activ | | oral tablet | once daily. | | | 8/20 | | e | | | | | | 19 | | | + + + +---------+------+------+-------+ | Blood Sugar | OneTouch Ultra Test | | 0 | | | Activ | | Diagnostic (ONETOUCH | strips TEST | | | | | e | | ULTRA TEST) strip | FLUCTUATING BLOOD | | | | | | | | SUGARS FASTING, | | | | | | | | before meals and at | | | | | | | | bedtime | | | | | | + + + +---------+------+------+-------+ Active Problems + + + | Problem | Noted Date | + + + | Moderate nonproliferative diabetic retinopathy without macular | 06/23/2018 | | edema, right eye | | + + + + + | Last Assessment & Plan: Stable. | | -Continue to monitor | | -Glycemic control encouraged | + + + + + | Moderate nonproliferative diabetic retinopathy with macular | 06/23/2018 | | edema, left eye | | + + + + + | Last Assessment & Plan: Stable. | | -Continue to monitor | | -Glycemic and BP control encouraged | + + Family History + + +------+ + | Medical History | Relation | Name | Comments | + + +------+ + | Diabetes | Father | | | + + +------+ + + +------+--------+ + | Relation | Name | Status | Comments | + +------+--------+ + | Father | | | | + +------+--------+ + Social History + +-------+ +--------+------+ | [...] on file | | + + + Last Filed Vital Signs Not on file Plan of Treatment + + + + + | Health Maintenance | Due Date | Last | Comments | | | | Done | | + + + + + | Pneumococcal | | 06/20/19 | | | vaccination (1 of 1 | 1 | 19 | | | - PPSV23) | | | | + + + + + | Influenza (Flu) | | 10/14/19 | | | vaccination (#1) | 0 | 19, | | | | | 10/16/19 | | | | | 18, | | | | | 11/15/19 | | | | | 16, | | | | | Addition | | | | | al | | | | | history | | | | | exists | | + + + + + Results Not on filefrom Last 3 Months Insurance + +--------+ +--------+ + +------+ | Payer | Benefi | Subscriber | Effect | Phone | Address | Type | | | t Plan | ID | andrade | | | | | | / | | Dates | | | | | | Group | | | | | | + +--------+ +--------+ + +------+ | [facility] | PHP | [id number] | 02/22/19 | [id number] | [address] | PPO | | | [address] | | 19-Pre | 0 | [address] | | [address] | | sent | | [place], | | | | [place] | | | | [place] [address] | | + +--------+ +--------+ + +------+ + +--------+ +--------+ + + | Guarantor Name | Accoun | Relation to | Date | Phone | Billing Address | | | t Type | Patient | of | | | | | | | | | | + +--------+ +--------+ + + | Wellington Saleem | Person | Self | [birth year] | [address] | | | al/Fam | | 1966 | [phone] | [place] | | | christianne | | | 6 (Home) | [phone] | | | | | | [phone] | | | | | | | 6 (Work) | | + +--------+ +--------+ + +"
[~2019-10-15 17:28] MED LIST changes: +HYDROCODON-ACE1 EA11 PO; +OXYCODONE HCL5 MG PO
[2019-10-15] MEDS ORDERED: HYDROCHLOROTH12.5 MG PO (17:39)
[2019-10-15] MEDS ORDERED: LISINOPRIL40 MG PO (17:39)
[2019-10-15] MEDS ORDERED: AMLODIPINE BESY10 MG PO (17:39)
[2019-10-15] MEDS ORDERED: JARDIANCE25 MG PO (17:39)
[2019-10-15] MEDS ORDERED: TRESIBA FL200 UNIT/1 SUB-Q (17:40)
== END 2019-10-15 19:27 | disposition home or self-care (01) ==
LOC: ED 17:28
DX: R04.0 Epistaxis (principal); E11.9 Type 2 diabetes mellitus without complications; I10 Essential (primary) hypertension; E78.5 Hyperlipidemia, unspecified; Z79.899 Other long term (current) drug therapy
CPT/HCPCS: 30901; 99283

== ENCOUNTER 2020-09-06 06:20 | Day surgery (SDC) | payer OTHER ==
--- NOTE | 2020-08-16 06:58 | NUR ---
CALLED PT HE HAS NOT SHOWED UP FOR HIS PROCEDURE YET. PT CONTACTED AND STATES THAT HE CALLED "SOMEONE" AT 4 AM THIS MORNING TO SAY HIS BOWEL PREP HAD NOT WORKED AND WANTED TO CANCEL. TOLD PT THAT HE NEEDS TO CALL DR. THURSTON'S OFFICE ON WEDNESDAY TO RESCHEDULE AND LET HIM KNOW THAT THE BOWEL PREP WAS NOT SUCCESSFUL FOR HIM. PT STATES UNDERSTANDING AND AGREEABLE TO THIS. OR CHARGE AND DAY SURGERY CHARGE NOTIFIED.
[~2020-09-06] VITALS: Ht 182.9 cm; Wt 95.2 kg
[~2020-09-06 06:20] MED LIST changes: +AMLODIPINE BESY10 MG PO; +GLUCOPHAGE500 MG PO; +HYDROCHLOROTH12.5 MG PO; +JARDIANCE10 MG PO; +JARDIANCE25 MG PO; +LISINOPRIL40 MG PO; +TRESIBA FL200 UNIT/1 SUB-Q; +TRESIBA100 UNIT/1 SQ; +TRULICITY0.75 MG/0. SQ
--- NOTE | 2020-09-06 06:46 | NUR ---
PT REPORTS HIS BLOOD SUGAR WAS 80 THIS MORNING. CBG AT BEDSIDE THIS MORNING WAS 93.
--- NOTE | 2020-09-06 08:31 | NUR ---
09/06/20 0831 Alayna Childs 0825: PT ARRIVES TO PACU AWAKE AND ALERT. HE IS REQUESTING WATER. HIS VSS.
--- NOTE | 2020-09-06 09:34 | NUR ---
PT ALERT, ORIENTED AND HERE FOR HIS FIRST SCOPE. PT MENTIONED THAT THIS WAS RESCHEDULED DUE TO FAILURE OF BOWEL PREP LAST MONTH. PT SEEMED TO DEAL WITH PREP APPROPRIATELY.RN RENEE IN TO TAKE PT, GAVE BLESSING AND WILL FOLLOW NEEDED
--- NOTE | 2020-09-09 12:40 | PATH ---
[facility] [address] [facility] [place] [address] Signed SPECIMEN(S): A SIGMOID POLYP SPECIMEN(S): B RECTAL POLYP SPECIMEN SOURCE: A. SIGMOID POLYP B. RECTAL POLYP CLINICAL HISTORY: Screening colonoscopy. Postop: Polyps x 2. MICROSCOPIC DESCRIPTION: Histologic sections of all submitted blocks are examined by light microscopy. These findings, together with the gross examination, support the pathologic diagnosis. FINAL PATHOLOGIC DIAGNOSIS: A. Colon, sigmoid, polypectomy: - Tubular adenoma. B. Rectum, polypectomy: - Tubular adenoma. BRP:[facility]:C2NR GROSS DESCRIPTION: Two specimens are received in two containers, labeled "TH." A. The specimen, labeled "TH, sigmoid colon polyp," is received in formalin and consists of two flores soft tissue fragments that measure 0.6-0.8 cm in greatest dimension. The specimen is entirely submitted in cassette (A1). B. The specimen, labeled "TH, rectal polyp," is received in formalin and consists of two flores soft tissue fragments that measure 0.2-0.3 cm in greatest dimension. The specimen is entirely submitted in cassette (B1). JS (under the direct supervision of a pathologist) The Gross Description was prepared using a voice recognition system. The report was reviewed for accuracy; however, sound-alike word errors, addition and/or deletions may occur. If there is any question about this report, please contact Client Services. PERFORMING LABORATORY: The technical component was performed by [employer], [address] [place] [id number] (Personal Financial Representative: Latisha Mensah MD; CLIA# [id number]). The professional interpretation was performed by [facility] PATIENT NAME: MARY ELELN PERALTA PATHOLOGY DATE OF : 63 REPORT #: [id number] PHYSICIAN: [facility] PCP: GERALDINE SANCHEZ MD REPORT IS CONFIDENTIAL AND NOT TO BE RELEASED WITHOUT AUTHORIZATION [facility] [address] [place], [place] [address] Signed [facility], [address] [place] [address]. Diagnostician: Noe Jewell MD Pathologist Electronically Signed 09/09/2020 Copies: ~ PATIENT NAME: MARY ELLEN PERALTA PATHOLOGY DATE OF : 63 REPORT #: [id number] PHYSICIAN: [facility] PCP: GERALDINE SANCHEZ MD REPORT IS CONFIDENTIAL AND NOT TO BE RELEASED WITHOUT AUTHORIZATION
--- NOTE | 2020-09-09 18:29 | OR ---
[facility] [address] [place], [place] [address] Signed DATE OF OPERATION: 09/06/2020 SURGEON: Dimitrios Thurston MD PREOPERATIVE DIAGNOSIS: Colon screening. POSTOPERATIVE DIAGNOSIS: Polyps x2 (sigmoid and rectum). PROCEDURE: Total colonoscopy to cecum with cold snare polypectomy x1 and cold morcellation/snare polypectomy. ANESTHESIA: Intravenous sedation, fentanyl 100 mcg, Versed 11 mg. INDICATION: This 55-year-old white man is a patient of Dr. Nicole Sanchez and is referred for screening colonoscopy. He has no symptoms of bleeding, diarrhea or constipation and no family history of colon cancer. He is admitted at this time to undergo screening colonoscopy. He understands the risks of bleeding, infection, perforation, and so on. FINDINGS: The prep was good. Complete colonoscopy was undertaken of the cecum. There were two polyps, one in the proximal sigmoid. The other in the mid rectum. Both were excised. PROCEDURE NOTE: The patient was brought to the endoscopy suite and placed in lateral decubitus position, given intravenous sedation to the point of slurred speech and nystagmus with full cardiopulmonary monitoring. Digital rectal examination was normal. An Olympus video colonoscope was passed in the rectum and manipulated throughout the colon, ultimately intubating the cecum. The ileocecal valve was well visualized. The appendiceal orifice was not seen particularly. The scope was withdrawn from that point and careful examination upon withdrawal of scope showed no abnormality until the distal left colon or proximal sigmoid where a small sessile polyp was noted. This was excised initially with cold snare technique and additional excision with cold morcellation technique. The scope was further withdrawn and in the low to mid rectum, was a sessile polyp, a bit larger in size. This was excised with cold snare technique. There was Electronically Signed By: DIMITRIOS THURSTON MD 09/09/20 1829 PATIENT NAME: MARY ELLEN PERALTA OPERATIVE REPORT DATE OF : 63 REPORT #: [id number] PHYSICIAN: DIMITRIOS THURSTON MD PCP: NICOLE SANCHEZ MD REPORT IS CONFIDENTIAL AND NOT TO BE RELEASED WITHOUT AUTHORIZATION [facility] [address] [place], [place] [address] Signed some oozing of blood and therefore, a hemoclip was applied which allowed for complete hemostasis. Both specimens were passed for pathology. The scope was removed and the patient was taken to the recovery room in good condition. CONCLUDING DIAGNOSIS: Polyps x2. PLAN: Recommend a repeat colonoscopy in 3 years sooner if clinically indicated. He will return to the ongoing care of Dr. Sanchez. MD HERON Olguin/MODL /[id number] cc: Nicole Sanchez MD Copies: ~ Electronically Signed By: DIMITRIOS THURSTON MD 09/09/20 1829 PATIENT NAME: MARY ELLEN PERALTA OPERATIVE REPORT DATE OF : 63 REPORT #: [id number] PHYSICIAN: DIMITRIOS THURSTON MD PCP: NICOLE SANCHEZ MD REPORT IS CONFIDENTIAL AND NOT TO BE RELEASED WITHOUT AUTHORIZATION
== END 2020-09-06 08:50 | disposition home or self-care (01) ==
LOC: DS 06:20 → OPS 06:20
PROVIDERS: ATTEND Surgery
PROC: 0DBP8ZX Excision of Rectum, Via Natural or Artificial Opening Endoscopic, Diagnostic (ICD-10-PCS; principal; 2020-09-06 06:45)
PROC: 0DBN8ZX Excision of Sigmoid Colon, Via Natural or Artificial Opening Endoscopic, Diagnostic (ICD-10-PCS; principal; 2020-09-06 06:45)
DX: Z12.11 Encounter for screening for malignant neoplasm of colon (principal); D12.7 Benign neoplasm of rectosigmoid junction; D12.5 Benign neoplasm of sigmoid colon; I10 Essential (primary) hypertension; E11.9 Type 2 diabetes mellitus without complications; Z79.84 Long term (current) use of oral hypoglycemic drugs
CPT/HCPCS: 99153; G0500; J2250; J3010; J7121

== ENCOUNTER 2022-01-08 06:00 | Day surgery (SDC) | payer OTHER ==
[~2022-01-08] VITALS: Ht 182.9 cm; Wt 96.8 kg
--- NOTE | 2022-01-08 08:50 | NUR ---
01/08/22 0850 Vinayak Jolley REORIENTED TO TIME AND SITUATION ON ENTRY TO PACU
[2022-01-08] MEDS ORDERED: ACETAMINOPHEN500 MG PO (09:09)
[2022-01-08] MEDS ORDERED: OXYCODON-ACETA1 EAC2 PO (09:09)
[2022-01-08] MEDS ORDERED: IBUPROFEN600 MG PO (09:09)
--- NOTE | 2022-01-08 09:26 | NUR ---
0920-PATIENT BACK TO ROOM FROM PACU ON . RECEIVED REPORT FROM BART JIN. PATIENT IS AWAKE ANE WATCHING TV. RESP EVEN AND UNLABORED. RATES PAIN 1/10 AND DENIES NAUSEA. DRESSING IS CLEAN, DRY, AND INTACT. PATIENT HAS PILLOW TO SPLINT WITH IF NEEDED. PROVIDED PATIENT WITH WATER AND CRACKERS. CALL LIGHT WITHIN REACH.
--- NOTE | 2022-01-08 10:28 | NUR ---
ANNABEL ROB NOTIFIED PT WOULD LIKE SPIRITUAL CARE. ARRIVED IN PTS' RM, HE IS ALERT AND ORIENTED. THANKED ME FOR COMING BY. GAVE SUPPORT, HAS RIDE PRE- ARRANGED WITH A FRIEND. PT REQUESTED PRAYER, WILL FOLLOW
--- NOTE | 2022-01-08 10:32 | NUR ---
1015-PATIENT UP TO RESTROOM. GAIT STEADY AND TOLERATED WELL 1020-PATIENT VOIDED 475ML OF YELLOW URINE. PATIENT BACK TO ROOM GETTING DRESSED.
--- NOTE | 2022-01-08 10:33 | NUR ---
1022-PATIENT SITTING ON THE END OF BED DRESSED. RATES PAIN 1/10 AND DENIES NAUSEA. DRESSING IS CLEAN, DRY, AND, INTACT. 1025-PROVIDED PATIENT WITH DISCHARGE INSTRUCTIONS. ALL QUESTIONS ANSWERED. PATEINT AMBULATES TO WHEELCHAIR. RIDE PROVIDED TO FRONT OF HOSPITAL WHERE HIS FRIEND WAS WAITING WITH THE CAR.
--- NOTE | 2022-01-09 09:46 | OR ---
[facility] [address] [place], [place] [address] Signed DATE OF OPERATION: 01/08/2022 SURGEON: Dimitrios Thurston MD PREOPERATIVE DIAGNOSIS: Reducible umbilical hernia. POSTOPERATIVE DIAGNOSIS: Reducible umbilical hernia with omentum. PROCEDURES: 1. Repair of umbilical hernia. 2. Implantation of Prolene mesh underlay technique with fascial closure. ANESTHESIA: General endotracheal, Cristina Hicks CRNA and local 10 mL of 0.25% Marcaine with epinephrine. INDICATIONS: This 56-year-old white man is a patient of Dr. Sanchez and referred with findings of an umbilical hernia. He has had a defect in the area for at least 10 years. Recently, he has had increasing symptoms of pain. He was seen by me in 2020 for colonoscopy. He has underlying hypertension and diabetes. He is admitted at this time to undergo repair of the umbilical hernia. He understands the risks of bleeding, infection, recurrence and so on. FINDINGS: The fascial defect was about 3 cm in total. The fascia was somewhat attenuated in the area. Herniation of omentum was noted, it was not incarcerated per se. Reduction was accomplished without problem and the properitoneal space developed allowing for implantation of Prolene mesh in an underlay technique. Transverse reapproximation of fascial edges was undertaken without problem. DESCRIPTION OF PROCEDURE: The patient was brought to the operating room, given general endotracheal anesthetic. Preoperative antibiotic Ancef was given. Sequential compression device stockings used and heparin subcutaneously administered. The abdomen was clipped and prepared with a chlorhexidine solution and draped sterilely. An incision was made in the curvilinear configuration to the left of the umbilical fold. Dissection was carried through the dermis with electrocautery and using blunt electrocautery dissection, the subcutaneous Electronically Signed By: DIMITRIOS THURSTON MD 01/09/22 0946 PATIENT NAME: MARY ELLEN PERALTA OPERATIVE REPORT DATE OF : 63 REPORT #: [id number] PHYSICIAN: DIMITRIOS THURSTON MD PCP: NICOLE SANCHEZ MD REPORT IS CONFIDENTIAL AND NOT TO BE RELEASED WITHOUT AUTHORIZATION [facility] [address] [place], [place] [address] Signed space was developed. Small hernia sac was noted. The dermis of the overlying umbilicus was freed from the hernia sac and circumferential freeing of the subcutaneous tissue from the underlying fascial area taken. The hernia sac was opened and found to have omentum within it, this was withdrawn through the probe into the intra-abdominal space. A plane was developed between the overlying fascia and the peritoneum for about 4 cm circumferentially. The hernia sac was then closed with 2-0 Vicryl suture. A segment of Prolene mesh was cut in a circular configuration and secured in an underlay technique with interrupted 0-Prolene sutures. The fascia was then reapproximated transversely with interrupted 0-Prolene suture in a horizontal mattress configuration. A 10 mL of 0.25% Marcaine was injected locally. Rudolph layer was reapproximated with interrupted 2-0 Vicryl and skin closed with running subcuticular 3-0 Vicryl. Steri-Strips were applied as was an Acticoat dressing. The patient tolerated procedure well, was extubated without problem, and taken to the recovery room in good condition. Dimitrios Thurston MD JM/MODL /[id number] cc: Nicole Sanchez MD Copies: ~ Electronically Signed By: DIMITRIOS THURSTON MD 01/09/22 0946 PATIENT NAME: MARY ELLEN PERALTA OPERATIVE REPORT DATE OF : 63 REPORT #: [id number] PHYSICIAN: DIMITRIOS THURSTON MD PCP: NICOLE SANCHEZ MD REPORT IS CONFIDENTIAL AND NOT TO BE RELEASED WITHOUT AUTHORIZATION
== END 2022-01-08 10:25 | disposition home or self-care (01) ==
LOC: DS 06:00
PROVIDERS: ATTEND Surgery
PROC: 0WUF0JZ Supplement Abdominal Wall with Synthetic Substitute, Open Approach (ICD-10-PCS; principal; 2022-01-08 07:30)
DX: K42.9 Umbilical hernia without obstruction or gangrene (principal); E11.9 Type 2 diabetes mellitus without complications; Z86.010 Personal history of colon polyps; Z98.49 Cataract extraction status, unspecified eye
CPT/HCPCS: C1781; J0131; J0690; J1100; J1644; J1885; J2405; J2704; J3010; J7121

== ENCOUNTER 2024-08-14 07:18 | Day surgery (SDC) | payer OTHER ==
[~2024-08-14] VITALS: Ht 182.9 cm; Wt 99.5 kg
[~2024-08-14 07:18] MED LIST changes: +ACETAMINOPHEN500 MG PO; +HYDROCHLOROTHIA25 MG PO; +IBLOOD GLUCOSE TEST STRIP 1 EA TEST VI PRN; +IBUPROFEN600 MG PO; +LACTATED RINGER'S 1,000 ML IV SCH; +LIDOCAINE HCL 1% 5 ML SDV INJ ONE; +MIDAZOLAM HCL 5 MG/5 ML VIAL IV PRN; +OXYCODON-ACETA1 EAC2 PO; +fentaNYL citrate 100 MCG/2 ML VIAL IV PRN
[2024-08-14 07:35] VITALS: BP 148/83
[2024-08-14] MEDS ORDERED: MIDAZOLAM HCL 5 MG/5 ML VIAL ONE (08:12)
[2024-08-14] MEDS ORDERED: fentaNYL citrate 100 MCG/2 ML VIAL ONE (08:12)
[2024-08-14] MEDS ORDERED: LORazepam 2 MG/ML VIAL IV ONE (08:15)
--- NOTE | 2024-08-14 09:22 | NUR ---
08/14/24 0922 Jimmy Lee 0915: PT ARRIVED TO PACU VIA STRETCHER. PT ARRIVED ON RA. REPORT TAKEN FROM [place] NURSES. PT HAS NO COMPLAINTS OF NAUSEA OF PAIN AT THIS TIME. PASSING GAS ON ARRIVAL TO PACU.
[2024-08-14 09:31] VITALS: BP 135/76
--- NOTE | 2024-08-14 18:29 | OR ---
[facility] [address] [place], [place] [address] Signed DATE OF OPERATION: 08/14/2024 SURGEON: Dimitrios Thurston MD PREOPERATIVE DIAGNOSIS: History of tubular adenoma x2, 2020. POSTOPERATIVE DIAGNOSIS: Normal colon to cecum except for scattered diverticula. PROCEDURE: Total colonoscopy to cecum. ANESTHESIA: Intravenous sedation fentanyl 100 mcg and Versed 8 mg. INDICATION: This 59-year-old white man is a patient Dr. Sanchez and underwent colonoscopy by me in 2020, where he was found to have two tubular adenomas. He currently has no symptoms of bleeding, diarrhea or constipation. He does have family history of colon cancer in a maternal grandfather. He understands the risk of surveillance colonoscopy including but not limited to bleeding, infection, and perforation and wished to proceed. FINDINGS: The prep was excellent. Complete colonoscopy was undertaken of the cecum. There were few diverticula of the sigmoid and right colon, but no evidence of polyps, colitis, or other abnormality. DESCRIPTION OF PROCEDURE: The patient was brought to the endoscopy suite and placed in lateral decubitus position, given intravenous sedation to the point of slurred speech and nystagmus. Digital rectal examination was normal. Olympus video colonoscope was passed in the rectum and manipulated throughout the colon ultimately intubating the cecum itself. The ileocecal valve and appendiceal orifice were normal. Scope was withdrawn and careful examination throughout showed a few scattered diverticula of the right colon and ultimately some of the sigmoid as well. Retroflexed view of the rectum was normal. Scope was removed. The patient was taken to the recovery room in good condition. Electronically Signed By: DIMITRIOS THURSTON MD 08/14/24 1829 PATIENT NAME: MARY ELLEN PERALTA OPERATIVE REPORT DATE OF : 63 REPORT #: [id number] PHYSICIAN: DIMITRIOS THURSTON MD PCP: GERALDINE SANCHEZ MD REPORT IS CONFIDENTIAL AND NOT TO BE RELEASED WITHOUT AUTHORIZATION [facility] [address] [place], [place] [address] Signed CONCLUDING DIAGNOSIS: No evidence of recurrent or new polyps. Scattered diverticula. PLAN: Recommend repeat colonoscopy in 7 to 10 years, sooner if symptoms should develop. He will return to the ongoing care of Dr. Sanchez. MD HERON Olguin/BRYCEL /[id number] cc: Dr. Sanchez Copies: ~ Electronically Signed By: DIMITRIOS THURSTON MD 08/14/24 1829 PATIENT NAME: MARY ELLEN PERALTA OPERATIVE REPORT DATE OF : 63 REPORT #: [id number] PHYSICIAN: DIMITRIOS THURSTON MD PCP: GERALDINE SANCHEZ MD REPORT IS CONFIDENTIAL AND NOT TO BE RELEASED WITHOUT AUTHORIZATION
== END 2024-08-14 09:52 | disposition home or self-care (01) ==
LOC: DS 07:18
PROVIDERS: ATTEND Surgery
PROC: 0DJD8ZZ Inspection of Lower Intestinal Tract, Via Natural or Artificial Opening Endoscopic (ICD-10-PCS; principal; 2024-08-14 08:30)
DX: Z12.11 Encounter for screening for malignant neoplasm of colon (principal); K57.30 Diverticulosis of large intestine without perforation or abscess without bleeding; K42.9 Umbilical hernia without obstruction or gangrene; I10 Essential (primary) hypertension; E11.9 Type 2 diabetes mellitus without complications; G47.33 Obstructive sleep apnea (adult) (pediatric); Z99.89 Dependence on other enabling machines and devices; Z86.0101 Personal history of adenomatous and serrated colon polyps; Z80.0 Family history of malignant neoplasm of digestive organs; Z79.899 Other long term (current) drug therapy; Z79.84 Long term (current) use of oral hypoglycemic drugs; Z98.49 Cataract extraction status, unspecified eye
CPT/HCPCS: 99153; G0500; J2060; J2250; J3010